=== PATIENT | female | born 1950 | race Asian ===

== ENCOUNTER 2018-06-08 10:34 | Emergency (ER) | payer MEDICARE, OTHER, SELFPAY ==
[2018-06-08] VITALS (13 sets, daily range): BP systolic 97–142; BP diastolic 52–93; PULSE 43–67; RESP 14–22; TEMP 36.4; O2SAT 93–98; BMI 32.5
--- NOTE | 2018-06-08 11:45 | DI.RAD.S_ITS ---
PROCEDURE: XR CHEST 1V INDICATIONS: chest pain TECHNIQUE: One view of the chest was acquired. COMPARISON: None. FINDINGS: Surgical changes and devices: None. Lungs and pleura: No pleural effusions or pneumothorax. Lungs are clear. Mediastinum: Mediastinal contours appear normal. Heart size is normal. Bones and chest wall: No suspicious bony lesions. Overlying soft tissues appear unremarkable. IMPRESSION: Negative chest. No acute cardiopulmonary process is evident. Dictated by: Thuan Juan M.D. on 06/08/2018 at 11:21 Approved by: Thuan Juan M.D. on 06/08/2018 at 11:37
[2018-06-08 11:57] LABS: Add Manual Diff / Slide Review NO; Basophils Percent Auto 1.2 % (0-2); Eosinophils Percent Auto 7.8 % (2-4); Hematocrit 37.9 % (36-46); Hemoglobin 12.8 g/dL (12.0-16.0); INR 0.9 (0.9-1.3); Lymphocytes Percent Auto 32.8 % (25-40); Mean Corpuscular HGB Conc 33.7 % (30-36); Mean Corpuscular Hemoglobin 31.7 PG (26-34); Mean Corpuscular Volume 94.3 fL (80-100); Monocytes Percent Auto 6.8 % (3-14); Neutrophils Absolute Auto 2800 /uL (1500-7000); Neutrophils Percent Auto 51.4 % (50-75); Platelet Count 210 X10^3/uL (150-400); Prothrombin Time 10.1 SECONDS (10.1-12.7); Red Blood Cell Count 4.02 X10^6/uL (4.0-5.2); Red Cell Distribution Width 13.1 % (11.6-14.8); White Blood Cell Count 5.4 X10^3/uL (4.5-11.0)
[2018-06-08 12:00] LABS: PTT Partial Thromboplastin Tim 23 SECONDS (26.4-36.2)
[2018-06-08 12:02] LABS: Alanine Aminotransferase 60 IU/L (9-52); Albumin 4.3 g/dL (3.5-5.0); Albumin Globulin Ratio 1.3 (1.0-2.8); Alkaline Phosphatase 75 U/L (38-126); Aspartate Aminotransferase 89 IU/L (14-36); BUN Creatinine Ratio 15.9 (6-22); Bilirubin Total 0.3 mg/dL (0.2-1.3); Blood Urea Nitrogen 27 mg/dL (7-17); Carbon Dioxide 26 mmol/L (22-32); Chloride 100 mmol/L (98-107); Creatine Kinase 71 U/L (30-135); Estimated Glomerular Filt Rate 29.7 mL/min (>60); Globulin 3.4 g/dL (1.7-4.1); Glucose 107 mg/dL (80-110); HEMOLYSIS < 15 (0-50); Lipase 210 U/L (23-300); Potassium 4.7 mmol/L (3.4-5.1); Sodium 140 mmol/L (137-145); Total Protein 7.7 g/dL (6.3-8.2)
[2018-06-08 12:03] LABS: Magnesium 2.3 mg/dL (1.6-2.3)
[2018-06-08 12:16] LABS: Troponin I < 0.012 ng/mL (0.01-0.034)
--- NOTE | 2018-06-08 12:41 | ED.DIZZY ---
HPI - Dizziness General Chief Complaint: Dizziness Stated Complaint: LOW BLOOD PRESSURE Time Seen by Provider: 06/08/18 10:36 Source: patient and family Mode of arrival: ambulatory Limitations: no limitations History of Present Illness HPI Narrative: 5-year-old female, nonsmoker with a history of kidney failure, hypertension and hyperlipidemia presents to the emergency department today with a chief complaint of a few days of feeling dizzy, weak and lightheaded with multiple episodes of near-syncope. She routinely takes her blood pressures daily and has noted that her blood pressures have been down in the 80s for a few days and her heart rate has been quite low as well. Most measurements find her in the mid to low 40s, she normally runs in the 80s or 90s. She denies any recent illness. She has had no nausea, vomiting, diarrhea or fever. She denies any new medications and takes no lenny blocking agents. She denies any history of the same and has no known cardiac disease. She was seen and evaluated by the [facility] and sent here for further evaluation. MD complaint: dizziness Onset (ago): day(s) Timing: sudden onset Description: lightheadedness History of similar episodes: No History of trauma: No Severity: moderate Exacerbating factors: nothing Related Data Home Medications Medication Instructions Recorded Confirmed Calcium/D3/Zing 1 tab PO DAILY 06/08/18 06/08/18 biotin 1 tab PO DAILY 06/08/18 06/08/18 cetirizine [Zyrtec] 10 mg PO DAILY 06/08/18 06/08/18 clonazepam 0.5 mg PO BID 06/08/18 06/08/18 fluoxetine 20 mg PO DAILY 06/08/18 06/08/18 gabapentin 300 mg PO BID 06/08/18 06/08/18 hydrochlorothiazide 12.5 mg PO DAILY 06/08/18 06/08/18 ibuprofen 200 mg PO PRN PRN 06/08/18 06/08/18 magnesium oxide 500 mg PO DAILY 06/08/18 06/08/18 ltrwfony-kcx-KB-lycopen-lutein 1 tab PO DAILY 06/08/18 06/08/18 [Centrum Silver] pantoprazole 40 mg PO DAILY 06/08/18 06/08/18 simvastatin 20 mg PO BEDTIME 06/08/18 06/08/18 tizanidine 4 mg PO BEDTIME PRN 06/08/18 06/08/18 Review of Systems Review of Systems All systems reviewed & are unremarkable except as noted in HPI and below Constitutional Denies chills, Denies fever(s), Denies lethargy and Denies weakness Eyes Denies change in vision, Denies eye discharge, Denies irritation and Denies loss of vision ENT Ears, Nose, Mouth, and Throat: Denies change in voice, Denies neck pain and Denies sore throat Cardiovascular Denies chest pain, Denies irregular heart rhythm, Reports lightheadedness, Denies palpitations, Denies dyspnea, Denies dyspnea on exertion and Denies orthopnea Respiratory Denies cough, Denies dyspnea, Denies dyspnea on exertion and Denies wheezing Gastrointestinal Gastrointestinal: Denies abdominal pain, Denies change in bowel habits, Denies diarrhea, Denies nausea and Denies vomiting Genitourinary Denies hematuria, Denies flank pain, Denies urinary incontinence and Denies urinary urgency Musculoskeletal Denies neck pain Integumentary/Breasts Denies pruritus, Denies erythema, Denies rash and Denies wounds Neurologic Denies confusion, Denies loss of vision and Denies weakness Psychiatric Denies anxiety, Denies confusion, Denies depression, Denies homicidal ideation and Denies suicidal ideation Endocrine Denies palpitations Hematologic/Lymphatic Denies easy bruising Allergic/Immunologic Denies wheezing [facility] Social History Smoking Status: Never smoker Exam Narrative Exam Narrative: GENERAL: This is a well-nourished, well-developed patient, in mild distress. HEAD: Atraumatic. Normocephalic. No temporal or scalp tenderness. EYES: Pupils equal round and reactive. Extraocular motions intact. No scleral icterus. No injection or drainage. ENT: Nose without bleeding, purulent drainage or septal hematoma. Throat without erythema, tonsillar hypertrophy or exudate. Uvula midline. Airway patent. NECK: Trachea midline. No JVD or lymphadenopathy. Supple, nontender, no meningeal signs. CARDIOVASCULAR: bradycardic rate with normal rhythm without murmurs, gallops, or rubs. RESPIRATORY: Clear to auscultation. Breath sounds equal bilaterally. No wheezes, rales, or rhonchi. GASTROINTESTINAL: Abdomen soft, non-tender, nondistended. No hepato-splenomegaly, or palpable masses. No guarding. EXTREMITIES: No clubbing, cyanosis, or edema. No joint tenderness, effusion, or edema noted. BACK: Nontender without deformity or crepitance. No flank tenderness. NEURO: AOx3. SKIN: No rash or erythema. Initial Vital Signs Initial Vital Signs: Vital Signs Temperature 97.5 F L 06/08/18 10:49 Pulse Rate 50 L 06/08/18 10:49 Respiratory Rate 20 06/08/18 10:49 Blood Pressure 97/54 L 06/08/18 10:49 Pulse Oximetry 96 06/08/18 10:49 Course Orders Ordered: ED Orders 06/08/18 10:25 Complete Blood Count AUTO DIFF Stat Comprehensive Metabolic Panel Stat Lipase Stat Magnesium Stat Partial Thromboplastin Time Stat Prothrombin Time INR Stat Troponin & CK Cardiac Panel Stat 06/08/18 11:45 XR chest 1V Stat EKG-12 Lead Stat 06/08/18 13:15 CT head/brain wo con Stat Consultations Consultation #1: call to cardiology at [facility] whom share the opinion that unprovoked bradycardia is worthy of admission and evaluation and that [facility] is the appropriate facility Consultation #2: Dr. Zepeda (hospitalist) is happy to accept patient Vital Signs - 8 hr 06/08/18 10:49 06/08/18 11:00 06/08/18 11:30 Temperature 97.5 F L Pulse Rate 50 L 43 L 43 L Pulse Rate [Orthostatic Lying] Pulse Rate [Orthostatic Sitting] Pulse Rate [Orthostatic Standing] Respiratory Rate 20 14 18 Blood Pressure 97/54 L Blood Pressure [Orthostatic Lying] Blood Pressure [Orthostatic Sitting] Blood Pressure [Orthostatic Standing] Blood Pressure [Right Arm] 115/52 L 106/55 L Pulse Oximetry 96 94 93 06/08/18 12:00 06/08/18 12:30 06/08/18 13:00 Temperature Pulse Rate 44 L 43 L 47 L Pulse Rate [Orthostatic Lying] Pulse Rate [Orthostatic Sitting] Pulse Rate [Orthostatic Standing] Respiratory Rate 17 16 16 Blood Pressure Blood Pressure [Orthostatic Lying] Blood Pressure [Orthostatic Sitting] Blood Pressure [Orthostatic Standing] Blood Pressure [Right Arm] 110/61 109/53 L 122/61 Pulse Oximetry 93 94 94 06/08/18 13:15 06/08/18 13:17 06/08/18 13:30 Temperature Pulse Rate 65 61 Pulse Rate [Orthostatic Lying] 44 L Pulse Rate [Orthostatic Sitting] 49 L Pulse Rate [Orthostatic Standing] 55 L Respiratory Rate 15 15 Blood Pressure Blood Pressure [Orthostatic Lying] 115/61 Blood Pressure [Orthostatic Sitting] 109/61 Blood Pressure [Orthostatic Standing] 111/58 L Blood Pressure [Right Arm] 109/93 H Pulse Oximetry 95 98 06/08/18 14:00 06/08/18 14:30 06/08/18 15:00 Temperature Pulse Rate 49 L 47 L 67 Pulse Rate [Orthostatic Lying] Pulse Rate [Orthostatic Sitting] Pulse Rate [Orthostatic Standing] Respiratory Rate 17 17 22 Blood Pressure Blood Pressure [Orthostatic Lying] Blood Pressure [Orthostatic Sitting] Blood Pressure [Orthostatic Standing] Blood Pressure [Right Arm] 132/63 128/56 L 142/54 H Pulse Oximetry 95 94 97 MDM - Dizziness Medical Records Attestation: I reviewed the patient's medical records. Lab Data Attestation: I reviewed the patient's lab results. Result diagrams: 06/08/18 10:25 06/08/18 10:25 Lab Results 06/08/18 06/08/18 06/08/18 Range/Units 10:25 10:25 10:25 WBC 5.4 (4.5-11.0) X10^3/uL RBC 4.02 (4.0-5.2) X10^6/uL Hgb 12.8 (12.0-16.0) g/dL Hct 37.9 (36-46) % MCV 94.3 (80-100) fL MCH 31.7 (26-34) PG MCHC 33.7 (30-36) % RDW 13.1 (11.6-14.8) % Plt Count 210 (150-400) X10^3/uL Neut % (Auto) 51.4 (50-75) % Lymph % (Auto) 32.8 (25-40) % Trinity % (Auto) 6.8 (3-14) % Eos % (Auto) 7.8 H (2-4) % Baso % (Auto) 1.2 (0-2) % Neut # (Auto) 2800 (3981-9112) /uL PT 10.1 (10.1-12.7) SECONDS INR 0.9 (0.9-1.3) APTT 23 L (26.4-36.2) SECONDS Sodium 140 (137-145) mmol/L Potassium 4.7 (3.4-5.1) mmol/L Chloride 100 (98-107) mmol/L Carbon Dioxide 26 (22-32) mmol/L BUN 27 H (7-17) mg/dL Creatinine 1.70 H (0.52-1.04) mg/dL Estimated GFR 29.7 L (>60) mL/min BUN/Creatinine Ratio 15.9 (6-22) Glucose 107 (80-110) mg/dL Calcium 10.0 (8.4-10.2) mg/dL Magnesium (1.6-2.3) mg/dL Total Bilirubin 0.3 (0.2-1.3) mg/dL AST 89 H (14-36) IU/L ALT 60 H (9-52) IU/L Alkaline Phosphatase 75 (38-126) U/L Total Creatine Kinase 71 (30-135) U/L CK-MB (CK-2) TNP CK-MB (CK-2) Rel Index TNP Troponin I < 0.012 (0.01-0.034) ng/mL Total Protein 7.7 (6.3-8.2) g/dL Albumin 4.3 (3.5-5.0) g/dL Globulin 3.4 (1.7-4.1) g/dL Albumin/Globulin Ratio 1.3 (1.0-2.8) Lipase 210 (23-300) U/L /14/18 Range/Units 10:25 WBC (4.5-11.0) X10^3/uL RBC (4.0-5.2) X10^6/uL Hgb (12.0-16.0) g/dL Hct (36-46) % MCV (80-100) fL MCH (26-34) PG MCHC (30-36) % RDW (11.6-14.8) % Plt Count (150-400) X10^3/uL Neut % (Auto) (50-75) % Lymph % (Auto) (25-40) % Trinity % (Auto) (3-14) % Eos % (Auto) (2-4) % Baso % (Auto) (0-2) % Neut # (Auto) (4308-5357) /uL PT (10.1-12.7) SECONDS INR (0.9-1.3) APTT (26.4-36.2) SECONDS Sodium (137-145) mmol/L Potassium (3.4-5.1) mmol/L Chloride (98-107) mmol/L Carbon Dioxide (22-32) mmol/L BUN (7-17) mg/dL Creatinine (0.52-1.04) mg/dL Estimated GFR (>60) mL/min BUN/Creatinine Ratio (6-22) Glucose (80-110) mg/dL Calcium (8.4-10.2) mg/dL Magnesium 2.3 (1.6-2.3) mg/dL Total Bilirubin (0.2-1.3) mg/dL AST (14-36) IU/L ALT (9-52) IU/L Alkaline Phosphatase (38-126) U/L Total Creatine Kinase (30-135) U/L CK-MB (CK-2) CK-MB (CK-2) Rel Index Troponin I (0.01-0.034) ng/mL Total Protein (6.3-8.2) g/dL Albumin (3.5-5.0) g/dL Globulin (1.7-4.1) g/dL Albumin/Globulin Ratio (1.0-2.8) Lipase (23-300) U/L ECG Data Attestation: I personally reviewed and interpreted this ECG as follows: Prior ECG tracings: not available for review Interpretation: sinus bradycardia. no block Discharge Plan Departure Patient Disposition: [facility] Clinical Impression: Symptomatic bradycardia Prescriptions: No Action cetirizine [Zyrtec] 10 mg Tablet 10 mg PO DAILY RF: 0 tizanidine 4 mg tablet 4 mg PO BEDTIME PRN (Reason: Spasms) RF: 0 clonazepam 0.5 mg tablet 0.5 mg PO BID RF: 0 pantoprazole 40 mg tablet,delayed release (DR/EC) 40 mg PO DAILY RF: 0 simvastatin 20 mg tablet 20 mg PO BEDTIME RF: 0 ibuprofen 200 mg Tablet 200 mg PO PRN PRN (Reason: pain) RF: 0 magnesium oxide 500 mg Tablet 500 mg PO DAILY RF: 0 gabapentin 300 mg capsule 300 mg PO BID RF: 0 fluoxetine 20 mg capsule 20 mg PO DAILY RF: 0 xbqucgwn-ycm-GS-lycopen-lutein [Centrum Silver] 0.4-300-250 mg-mcg-mcg Tablet 1 tab PO DAILY RF: 0 hydrochlorothiazide 12.5 mg tablet 12.5 mg PO DAILY RF: 0 Calcium/D3/Zing 1 tab PO DAILY RF: 0 biotin 1 tab PO DAILY RF: 0
--- NOTE | 2018-06-08 13:15 | DI.CT.S_ITS ---
PROCEDURE: CT HEAD/BRAIN WO CON INDICATIONS: dizzy, ataxia TECHNIQUE: Noncontrast 4.5 mm thick angled axial sections acquired from the foramen magnum to the vertex, with coronal and sagittal reformats. For radiation dose reduction, the following was used: automated exposure control, adjustment of mA and/or kV according to patient size. COMPARISON: None. FINDINGS: Image quality: Excellent. CSF spaces: Basal cisterns are patent. No extra-axial fluid collections. The ventricles are symmetric in size and shape. Brain: No intracranial bleeds or masses. There is mild cerebral volume loss for age, with resultant ventricular and sulcal prominence. There are mild periventricular and deep white matter chronic small vessel ischemic changes. There is intracranial internal carotid artery atherosclerosis. Skull and face: Calvarium and visualized facial bones appear intact, without suspicious lesions. Sinuses: Mastoids are clear. There is mucous retention cyst in the left ethmoid sinus and IMPRESSION: 1. No acute intracranial abnormalities. 2. Cerebral volume loss and chronic microvascular ischemic changes. 3. Mild left ethmoid sinus disease. Dictated by: Noni Correa M.D. on 06/08/2018 at 13:58 Approved by: Noni Correa M.D. on 06/08/2018 at 14:01
--- NOTE | 2018-06-08 13:17 | PC.NURSE ---
While ambulating pt reported feeling dizzy. Checked BP at this time and bP while standing increased to 134/73. While standing to get blood pressure, pt reports dizziness decreased. Was unsteady while standing. When got back to bed and sat on bed pt was 117/65. Denied any dizziness the rest of the walk. Walked around nurses station.
--- NOTE | 2018-06-08 15:33 | ED_ITS ---
HPI - Dizziness General Chief Complaint: Dizziness Stated Complaint: LOW BLOOD PRESSURE Time Seen by Provider: 06/08/18 10:36 Source: patient and family Mode of arrival: ambulatory Limitations: no limitations History of Present Illness HPI Narrative: 5-year-old female, nonsmoker with a history of kidney failure, hypertension and hyperlipidemia presents to the emergency department today with a chief complaint of a few days of feeling dizzy, weak and lightheaded with multiple episodes of near-syncope. She routinely takes her blood pressures daily and has noted that her blood pressures have been down in the 80s for a few days and her heart rate has been quite low as well. Most measurements find her in the mid to low 40s, she normally runs in the 80s or 90s. She denies any recent illness. She has had no nausea, vomiting, diarrhea or fever. She denies any new medications and takes no lenny blocking agents. She denies any history of the same and has no known cardiac disease. She was seen and evaluated by the [facility] and sent here for further evaluation. MD complaint: dizziness Onset (ago): day(s) Timing: sudden onset Description: lightheadedness History of similar episodes: No History of trauma: No Severity: moderate Exacerbating factors: nothing Related Data Home Medications Medication Instructions Recorded Confirmed Calcium/D3/Zing 1 tab PO DAILY 06/08/18 06/08/18 biotin 1 tab PO DAILY 06/08/18 06/08/18 cetirizine [Zyrtec] 10 mg PO DAILY 06/08/18 06/08/18 clonazepam 0.5 mg PO BID 06/08/18 06/08/18 fluoxetine 20 mg PO DAILY 06/08/18 06/08/18 gabapentin 300 mg PO BID 06/08/18 06/08/18 hydrochlorothiazide 12.5 mg PO DAILY 06/08/18 06/08/18 ibuprofen 200 mg PO PRN PRN 06/08/18 06/08/18 magnesium oxide 500 mg PO DAILY 06/08/18 06/08/18 zwfubkok-qyq-DN-lycopen-lutein 1 tab PO DAILY 06/08/18 06/08/18 [Centrum Silver] pantoprazole 40 mg PO DAILY 06/08/18 06/08/18 simvastatin 20 mg PO BEDTIME 06/08/18 06/08/18 tizanidine 4 mg PO BEDTIME PRN 06/08/18 06/08/18 Review of Systems Review of Systems All systems reviewed & are unremarkable except as noted in HPI and below Constitutional Denies chills, Denies fever(s), Denies lethargy and Denies weakness Eyes Denies change in vision, Denies eye discharge, Denies irritation and Denies loss of vision ENT Ears, Nose, Mouth, and Throat: Denies change in voice, Denies neck pain and Denies sore throat Cardiovascular Denies chest pain, Denies irregular heart rhythm, Reports lightheadedness, Denies palpitations, Denies dyspnea, Denies dyspnea on exertion and Denies orthopnea Respiratory Denies cough, Denies dyspnea, Denies dyspnea on exertion and Denies wheezing Gastrointestinal Gastrointestinal: Denies abdominal pain, Denies change in bowel habits, Denies diarrhea, Denies nausea and Denies vomiting Genitourinary Denies hematuria, Denies flank pain, Denies urinary incontinence and Denies urinary urgency Musculoskeletal Denies neck pain Integumentary/Breasts Denies pruritus, Denies erythema, Denies rash and Denies wounds Neurologic Denies confusion, Denies loss of vision and Denies weakness Psychiatric Denies anxiety, Denies confusion, Denies depression, Denies homicidal ideation and Denies suicidal ideation Endocrine Denies palpitations Hematologic/Lymphatic Denies easy bruising Allergic/Immunologic Denies wheezing [facility] Social History Smoking Status: Never smoker Exam Narrative Exam Narrative: GENERAL: This is a well-nourished, well-developed patient, in mild distress. HEAD: Atraumatic. Normocephalic. No temporal or scalp tenderness. EYES: Pupils equal round and reactive. Extraocular motions intact. No scleral icterus. No injection or drainage. ENT: Nose without bleeding, purulent drainage or septal hematoma. Throat without erythema, tonsillar hypertrophy or exudate. Uvula midline. Airway patent. NECK: Trachea midline. No JVD or lymphadenopathy. Supple, nontender, no meningeal signs. CARDIOVASCULAR: bradycardic rate with normal rhythm without murmurs, gallops, or rubs. RESPIRATORY: Clear to auscultation. Breath sounds equal bilaterally. No wheezes , rales, or rhonchi. GASTROINTESTINAL: Abdomen soft, non-tender, nondistended. No hepato-splenomegaly , or palpable masses. No guarding. EXTREMITIES: No clubbing, cyanosis, or edema. No joint tenderness, effusion, or edema noted. BACK: Nontender without deformity or crepitance. No flank tenderness. NEURO: AOx3. SKIN: No rash or erythema. Initial Vital Signs Initial Vital Signs: Vital Signs Temperature 97.5 F L 06/08/18 10:49 Pulse Rate 50 L 06/08/18 10:49 Respiratory Rate 20 06/08/18 10:49 Blood Pressure 97/54 L 06/08/18 10:49 Pulse Oximetry 96 06/08/18 10:49 Course Orders Ordered: ED Orders 06/08/18 10:25 Complete Blood Count AUTO DIFF Stat Comprehensive Metabolic Panel Stat Lipase Stat Magnesium Stat Partial Thromboplastin Time Stat Prothrombin Time INR Stat Troponin & CK Cardiac Panel Stat 06/08/18 11:45 XR chest 1V Stat EKG-12 Lead Stat 06/08/18 13:15 CT head/brain wo con Stat Consultations Consultation #1: call to cardiology at [facility] whom share the opinion that unprovoked bradycardia is worthy of admission and evaluation and that [facility] is the appropriate facility Consultation #2: Dr. Zepeda (hospitalist) is happy to accept patient Vital Signs - 8 hr 06/08/18 10:49 06/08/18 11:00 06/08/18 11:30 Temperature 97.5 F L Pulse Rate 50 L 43 L 43 L Pulse Rate [Orthostatic Lying] Pulse Rate [Orthostatic Sitting] Pulse Rate [Orthostatic Standing] Respiratory Rate 20 14 18 Blood Pressure 97/54 L Blood Pressure [Orthostatic Lying] Blood Pressure [Orthostatic Sitting] Blood Pressure [Orthostatic Standing] Blood Pressure [Right Arm] 115/52 L 106/55 L Pulse Oximetry 96 94 93 06/08/18 12:00 06/08/18 12:30 06/08/18 13:00 Temperature Pulse Rate 44 L 43 L 47 L Pulse Rate [Orthostatic Lying] Pulse Rate [Orthostatic Sitting] Pulse Rate [Orthostatic Standing] Respiratory Rate 17 16 16 Blood Pressure Blood Pressure [Orthostatic Lying] Blood Pressure [Orthostatic Sitting] Blood Pressure [Orthostatic Standing] Blood Pressure [Right Arm] 110/61 109/53 L 122/61 Pulse Oximetry 93 94 94 06/08/18 13:15 06/08/18 13:17 06/08/18 13:30 Temperature Pulse Rate 65 61 Pulse Rate [Orthostatic Lying] 44 L Pulse Rate [Orthostatic Sitting] 49 L Pulse Rate [Orthostatic Standing] 55 L Respiratory Rate 15 15 Blood Pressure Blood Pressure [Orthostatic Lying] 115/61 Blood Pressure [Orthostatic Sitting] 109/61 Blood Pressure [Orthostatic Standing] 111/58 L Blood Pressure [Right Arm] 109/93 H Pulse Oximetry 95 98 06/08/18 14:00 06/08/18 14:30 06/08/18 15:00 Temperature Pulse Rate 49 L 47 L 67 Pulse Rate [Orthostatic Lying] Pulse Rate [Orthostatic Sitting] Pulse Rate [Orthostatic Standing] Respiratory Rate 17 17 22 Blood Pressure Blood Pressure [Orthostatic Lying] Blood Pressure [Orthostatic Sitting] Blood Pressure [Orthostatic Standing] Blood Pressure [Right Arm] 132/63 128/56 L 142/54 H Pulse Oximetry 95 94 97 MDM - Dizziness Medical Records Attestation: I reviewed the patient's medical records. Lab Data Attestation: I reviewed the patient's lab results. Result diagrams: 06/08/18 10:25 06/08/18 10:25 Lab Results 06/08/18 06/08/18 06/08/18 Range/Units 10:25 10:25 10:25 WBC 5.4 (4.5-11.0) X10^3/uL RBC 4.02 (4.0-5.2) X10^6/uL Hgb 12.8 (12.0-16.0) g/dL Hct 37.9 (36-46) % MCV 94.3 (80-100) fL MCH 31.7 (26-34) PG MCHC 33.7 (30-36) % RDW 13.1 (11.6-14.8) % Plt Count 210 (150-400) X10^3/uL Neut % (Auto) 51.4 (50-75) % Lymph % (Auto) 32.8 (25-40) % Pine % (Auto) 6.8 (3-14) % Eos % (Auto) 7.8 H (2-4) % Baso % (Auto) 1.2 (0-2) % Neut # (Auto) 2800 (9150-9889) /uL PT 10.1 (10.1-12.7) SECONDS INR 0.9 (0.9-1.3) APTT 23 L (26.4-36.2) SECONDS Sodium 140 (137-145) mmol/L Potassium 4.7 (3.4-5.1) mmol/L Chloride 100 (98-107) mmol/L Carbon Dioxide 26 (22-32) mmol/L BUN 27 H (7-17) mg/dL Creatinine 1.70 H (0.52-1.04) mg/dL Estimated GFR 29.7 L (>60) mL/min BUN/Creatinine Ratio 15.9 (6-22) Glucose 107 (80-110) mg/dL Calcium 10.0 (8.4-10.2) mg/dL Magnesium (1.6-2.3) mg/dL Total Bilirubin 0.3 (0.2-1.3) mg/dL AST 89 H (14-36) IU/L ALT 60 H (9-52) IU/L Alkaline Phosphatase 75 (38-126) U/L Total Creatine Kinase 71 (30-135) U/L CK-MB (CK-2) TNP CK-MB (CK-2) Rel Index TNP Troponin I < 0.012 (0.01-0.034) ng/mL Total Protein 7.7 (6.3-8.2) g/dL Albumin 4.3 (3.5-5.0) g/dL Globulin 3.4 (1.7-4.1) g/dL Albumin/Globulin Ratio 1.3 (1.0-2.8) Lipase 210 (23-300) U/L /14/18 Range/Units 10:25 WBC (4.5-11.0) X10^3/uL RBC (4.0-5.2) X10^6/uL Hgb (12.0-16.0) g/dL Hct (36-46) % MCV (80-100) fL MCH (26-34) PG MCHC (30-36) % RDW (11.6-14.8) % Plt Count (150-400) X10^3/uL Neut % (Auto) (50-75) % Lymph % (Auto) (25-40) % Pine % (Auto) (3-14) % Eos % (Auto) (2-4) % Baso % (Auto) (0-2) % Neut # (Auto) (9189-2255) /uL PT (10.1-12.7) SECONDS INR (0.9-1.3) APTT (26.4-36.2) SECONDS Sodium (137-145) mmol/L Potassium (3.4-5.1) mmol/L Chloride (98-107) mmol/L Carbon Dioxide (22-32) mmol/L BUN (7-17) mg/dL Creatinine (0.52-1.04) mg/dL Estimated GFR (>60) mL/min BUN/Creatinine Ratio (6-22) Glucose (80-110) mg/dL Calcium (8.4-10.2) mg/dL Magnesium 2.3 (1.6-2.3) mg/dL Total Bilirubin (0.2-1.3) mg/dL AST (14-36) IU/L ALT (9-52) IU/L Alkaline Phosphatase (38-126) U/L Total Creatine Kinase (30-135) U/L CK-MB (CK-2) CK-MB (CK-2) Rel Index Troponin I (0.01-0.034) ng/mL Total Protein (6.3-8.2) g/dL Albumin (3.5-5.0) g/dL Globulin (1.7-4.1) g/dL Albumin/Globulin Ratio (1.0-2.8) Lipase (23-300) U/L ECG Data Attestation: I personally reviewed and interpreted this ECG as follows: Prior ECG tracings: not available for review Interpretation: sinus bradycardia. no block Discharge Plan Departure Patient Disposition: [facility] Clinical Impression: Symptomatic bradycardia Prescriptions: No Action cetirizine [Zyrtec] 10 mg Tablet 10 mg PO DAILY RF: 0 tizanidine 4 mg tablet 4 mg PO BEDTIME PRN (Reason: Spasms) RF: 0 clonazepam 0.5 mg tablet 0.5 mg PO BID RF: 0 pantoprazole 40 mg tablet,delayed release (DR/EC) 40 mg PO DAILY RF: 0 simvastatin 20 mg tablet 20 mg PO BEDTIME RF: 0 ibuprofen 200 mg Tablet 200 mg PO PRN PRN (Reason: pain) RF: 0 magnesium oxide 500 mg Tablet 500 mg PO DAILY RF: 0 gabapentin 300 mg capsule 300 mg PO BID RF: 0 fluoxetine 20 mg capsule 20 mg PO DAILY RF: 0 zkjhkewu-mvm-HP-lycopen-lutein [Centrum Silver] 0.4-300-250 mg-mcg-mcg Tablet 1 tab PO DAILY RF: 0 hydrochlorothiazide 12.5 mg tablet 12.5 mg PO DAILY RF: 0 Calcium/D3/Zing 1 tab PO DAILY RF: 0 biotin 1 tab PO DAILY RF: 0
== END 2018-06-08 15:39 | disposition short-term general hospital (02) ==
PROVIDERS: Emergency Provider Emergency Medicine
DX: R00.1 Bradycardia, unspecified (principal)
CPT/HCPCS: 36415; 36591; 70450; 71045; 80053; 82550; 83690; 83735; 84484; 85025; 85610; 85730; 93005; 93010; 93041; 99285

== ENCOUNTER 2019-02-05 12:52 | Emergency (ER) | payer MEDICARE, OTHER, SELFPAY ==
[2019-02-05 12:58] VITALS: BP 106/70; PULSE 76; RESP 20; TEMP 36.5; O2SAT 94
[2019-02-05 15:08] LABS: RBC Urine 1-5/HPF (0-5/HPF); Squamous Epithelial Cell Urine 1-5 /HPF (0-5/HPF); WBC Urine 30-100/HPF (0-5/HPF)
[2019-02-05 15:09] LABS: Amorphous Sediment Urine 1+; Bacteria Urine Many (>30); Culture Indicated Urine Specimen Cultured; Mucus Urine 1+ (Negative)
[2019-02-05 15:18] VITALS: BP 120/62; PULSE 70; RESP 15; TEMP 37; O2SAT 99
[2019-02-05 16:47] VITALS: BP 122/57; PULSE 73; RESP 15; O2SAT 100
--- NOTE | 2019-02-05 17:22 | ED_ITS ---
HPI - Back Pain/Injury General Chief Complaint: Back Pain/Injury Stated Complaint: BACK PAIN SOB LOW BLOOD PRESSURE Time Seen by Provider: 02/05/19 14:40 Source: patient and family Mode of arrival: ambulatory Limitations: no limitations History of Present Illness HPI Narrative: Patient complains of right flank pain and low back pain that started about 2 days ago. Patient denies any fevers or chills. She denies any injury. She has had mild dysuria. No nausea or vomiting. She states that sometimes when she takes a deep breath, it causes the pain to be a little worse, but she denies any actual shortness of breath. No dizziness or lightheadedness. No cough. No abdominal pain. No other complaints at this time. Patient does not have any chronic back problems that she knows of. Related Data Home Medications Medication Instructions Recorded Confirmed Calcium/D3/Zing 1 tab PO DAILY 06/08/18 06/08/18 biotin 1 tab PO DAILY 06/08/18 06/08/18 cetirizine [Zyrtec] 10 mg PO DAILY 06/08/18 06/08/18 fluoxetine 20 mg PO DAILY 06/08/18 02/05/19 gabapentin 300 mg PO BID 06/08/18 06/08/18 hydrochlorothiazide 12.5 mg PO DAILY 06/08/18 06/08/18 ibuprofen 200 mg PO PRN PRN 06/08/18 06/08/18 magnesium oxide 500 mg PO DAILY 06/08/18 06/08/18 gfonwflu-xlc-YL-lycopen-lutein 1 tab PO DAILY 06/08/18 06/08/18 [Centrum Silver] pantoprazole 40 mg PO DAILY 06/08/18 06/08/18 simvastatin 20 mg PO BEDTIME 06/08/18 02/05/19 tizanidine 4 mg PO BEDTIME PRN 06/08/18 06/08/18 amlodipine 2.5 mg PO DAILY 02/05/19 02/05/19 Previous Rx's Medication Instructions Recorded sulfamethoxazole-trimethoprim 1 tab PO BID #14 tab 02/05/19 [Bactrim DS] Allergies Allergy/AdvReac Type Severity Reaction Status Date / Time Penicillins Allergy Hives Verified 02/10/19 12:27 Review of Systems Constitutional Denies chills, Denies fever(s), Denies lethargy and Denies weakness Eyes Denies change in vision, Denies eye discharge, Denies irritation and Denies loss of vision ENT Ears, Nose, Mouth, and Throat: Denies change in voice, Denies neck pain and Denies sore throat Cardiovascular Denies chest pain, Denies irregular heart rhythm, Denies lightheadedness, Denies palpitations, Denies dyspnea, Denies dyspnea on exertion and Denies orthopnea Respiratory Denies cough, Denies dyspnea, Denies dyspnea on exertion and Denies wheezing Gastrointestinal Gastrointestinal: Denies abdominal pain, Denies change in bowel habits, Denies diarrhea, Denies nausea and Denies vomiting Genitourinary Denies hematuria, Denies flank pain, Denies urinary incontinence and Denies urinary urgency Musculoskeletal Denies neck pain Comments: Back pain Integumentary/Breasts Denies pruritus, Denies erythema, Denies rash and Denies wounds Neurologic Denies confusion, Denies loss of vision and Denies weakness Psychiatric Denies anxiety, Denies confusion, Denies depression, Denies homicidal ideation and Denies suicidal ideation Endocrine Denies palpitations Hematologic/Lymphatic Denies easy bruising Allergic/Immunologic Denies wheezing PFSH Medical History HTN (hypertension) (Acute) Surgical History No pertinent past surgical history (Acute) Social History Smoking Status: Former smoker Social History Smoking Status: Former smoker Exam Initial Vital Signs Initial Vital Signs: Vital Signs Temperature 97.7 F 02/05/19 12:58 Pulse Rate 76 02/05/19 12:58 Respiratory Rate 20 02/05/19 12:58 Blood Pressure 106/70 02/05/19 12:58 Pulse Oximetry 94 02/05/19 12:58 Const General: cooperative and well developed Nutritional Appearance: well nourished Orientation: alert, awake, oriented x3 and not confused HENLA Head: normocephalic and atraumatic Ears: external ears normal Nose: external nose normal and No nasal discharge Face and sinus: face symmetric and No dry mucous membranes Mouth: oral mucosae normal and moist mucous membranes Teeth and gingiva: dentition normal Eyes General: appearance normal, both eyes and all related structures Eyelids: eyelids normal Conjunctivae: conjunctivae normal Sclera: sclerae normal Pupils: PERRL EOM: EOM intact bilaterally Neck Neck: normal visual inspection, trachea midline, No lymphadenopathy, No midline deformity and No JVD Lymphatic: No lymphedema Chest Chest: normal inspection of the chest Resp Effort & Inspection: normal respiratory effort, able to speak in complete sentences, no respiratory distress and no use of accessory muscles Auscultation: clear to auscultation bilaterally, no rales, no rhonchi and no wheezes Cardio Rate: regular rate Rhythm: regular rhythm Heart Sounds: no click, no gallops, no murmurs and no rubs Pulses: normal peripheral pulses GI Inspection: non-distended Palpation: soft, no hepatosplenomegaly, No guarding, No pulsatile mass and No tender Back/Spine/Pelvis Back: CVA tenderness (Mild right) Cervical Spine: cervical ROM normal and No pain with cervical ROM Thoracic/Lumbar Spine: thoracic and lumbar spine normal to inspection (No tender ness or step-off.) Other: Patient has lumbar paraspinal muscular tenderness on the right. She also has pain in the same area with range of motion. Skin General: no rashes or lesions noted, No jaundice and No petechiae Neuro General: alert, oriented x3, gait normal and no focal motor deficits Speech: speech normal Extrem General: full ROM, no clubbing, cyanosis or edema, no pedal edema and no calf tenderness Psych Appearance: well kempt Mental Status: mental status grossly normal Attitude: cooperative Thought Content: normal and suicidality Judgment: judgment good Course Course Narrative: Up with labs and urinalysis. Labs were unremarkable, with a normal white blood cell count. Urinalysis was positive for infection. Patient was started on Bactrim for this. We have discussed home management of the symptoms, as well as the usual indications for return. Orders Ordered: Discontinued Medications Acetaminophen (Tylenol) 650 mg PO NOW ONE Stop: 02/05/19 17:18 Last Admin: 02/05/19 18:02 Dose: 650 mg Ketorolac Tromethamine (Toradol) 60 mg IM NOW ONE Stop: 02/05/19 17:18 Last Admin: 02/05/19 18:01 Dose: 60 mg Trimethoprim/Sulfamethoxazole (Bactrim Ds) 1 tab PO NOW ONE Stop: 02/05/19 17:15 Last Admin: 02/05/19 18:02 Dose: 1 tab Vital Signs - 8 hr 02/05/19 12:58 02/05/19 15:18 02/05/19 16:47 Temperature 97.7 F 98.6 F Pulse Rate 76 70 73 Respiratory Rate 20 15 15 Blood Pressure 106/70 Blood Pressure [Right Arm] 120/62 122/57 L Pulse Oximetry 94 99 100 MDM - Back Pain/Injury Medical Records Attestation: I reviewed the patient's medical records. Lab Data Attestation: I reviewed the patient's lab results. Lab Results 02/05/19 Range/Units 14:30 Urine RBC 1-5/hpf (0-5/HPF) Urine WBC 30-100/hpf H (0-5/HPF) Ur Squamous Epith Cells 1-5 /hpf (0-5/HPF) Amorphous Sediment 1+ Urine Bacteria Many (>30) H (None) Urine Mucus 1+ H (Negative) Ur Culture Indicated? Specimen cultured Urine Dip Bedside Urine Glucose Negative Bedside Urine Bilirubin + 1 Bedside Urine Ketone +/- 5 Urine Specific [place] 1.015 Bedside Urine Occult Blood +++ Bedside Urine pH 6.0 Bedside Urine Protein + 30 Bedside Urine Urobilinogen +/- 1mg Bedside Urine Nitrite + Positive Bedside Urine Leukocytes +++ 500 Esterase Discharge Plan Departure Patient Disposition: Home Clinical Impression: Urinary tract infection Qualifiers: Urinary tract infection type: acute cystitis Hematuria presence: with hematuria Qualified Code(s): N30.01 - Acute cystitis with hematuria Discharge Date/Time: 02/05/19 18:22 Interventions: ED Discharge Assessment Last Done: 02/05/19 18:21 Instructions: DI for Low Back Pain, DI for Urinary Tract Infection (UTI) Activity Restrictions/Additional Instructions: Your urine is strongly positive for infection. You have been started on antibiotics for this in the emergency department. Please continue the antibiotics at home, until the course is finished. Drink plenty of fluids, and take Tylenol and ibuprofen, as needed for discomfort. Your prescription has been electronically transmitted to [facility] in [place]. Prescriptions: New sulfamethoxazole-trimethoprim [Bactrim DS] 800-160 mg tablet 1 tab PO BID Qty: 14 RF: 0 No Action amlodipine 2.5 mg tablet 2.5 mg PO DAILY RF: 0 cetirizine [Zyrtec] 10 mg Tablet 10 mg PO DAILY RF: 0 tizanidine 4 mg tablet 4 mg PO BEDTIME PRN (Reason: Spasms) RF: 0 pantoprazole 40 mg tablet,delayed release (DR/EC) 40 mg PO DAILY RF: 0 simvastatin 20 mg tablet 20 mg PO BEDTIME RF: 0 ibuprofen 200 mg Tablet 200 mg PO PRN PRN (Reason: pain) RF: 0 magnesium oxide 500 mg Tablet 500 mg PO DAILY RF: 0 gabapentin 300 mg capsule 300 mg PO BID RF: 0 fluoxetine 20 mg capsule 20 mg PO DAILY RF: 0 axyckipf-ofu-FA-lycopen-lutein [Centrum Silver] 0.4-300-250 mg-mcg-mcg Tablet 1 tab PO DAILY RF: 0 hydrochlorothiazide 12.5 mg tablet 12.5 mg PO DAILY RF: 0 Calcium/D3/Zing 1 tab PO DAILY RF: 0 biotin 1 tab PO DAILY RF: 0
[2019-02-05] MEDS: KETOROLAC 60 MG/2 ML VIAL IM (18:01)
[2019-02-05] MEDS: ACETAMINOPHEN 325 MG TABLET 650 MG PO (18:02)
[2019-02-05] MEDS: TRIMETH/SULFA 160/800 (DS) TABLET 1 TAB PO (18:02)
== END 2019-02-05 18:22 | disposition home or self-care (01) ==
PROVIDERS: Emergency Provider Emergency Medicine
DX: N30.01 Acute cystitis with hematuria (principal)
CPT/HCPCS: 81003; 81015; 87077; 87086; 87186; 96372; 99282; 99283; J1885

== ENCOUNTER 2019-02-10 12:09 | Emergency (ER) | payer MEDICARE, OTHER, SELFPAY ==
[2019-02-10 12:21] VITALS: BP 134/67; PULSE 80; RESP 16; TEMP 36.4; O2SAT 96; BMI 29.2
[2019-02-10 12:35] LABS: Appearance Urine UA CLEAR; Bilirubin Urine UA NEGATIVE (NEGATIVE); Color Urine UA YELLOW; Glucose Urine UA NEGATIVE (Negative); Ketones Urine UA NEGATIVE (NEGATIVE); Leukocyte Esterase Urine UA NEGATIVE (NEGATIVE); Nitrite Urine UA NEGATIVE (Negative); Occult Blood Urine UA 1+ (Negative); Protein Urine UA NEGATIVE (Negative); Specific Gravity Urine UA 1.015 (1.000-1.035); Urobilinogen Urine UA 0.2 E.U./dL (0.2)
[2019-02-10 12:47] LABS: Amorphous Sediment Urine 1+; Bacteria Urine Occasional (0-1); Culture Indicated Urine Cult Not Indicated; Hyaline Casts Urine 1-5/LPF; Mucus Urine 1+ (Negative); RBC Urine 1-5/HPF (0-5/HPF); Squamous Epithelial Cell Urine 5-10 /HPF (0-5/HPF); WBC Urine 0-1/HPF (0-5/HPF)
[2019-02-10 13:29] LABS: Add Manual Diff / Slide Review NO; Basophils Absolute Auto 100 /uL (0-100); Basophils Percent Auto 2.6 % (0-2); Eosinophils Absolute Auto 200 /uL (0-450); Eosinophils Percent Auto 4.2 % (2-4); Hematocrit 35.4 % (36-46); Lymphocytes Absolute Auto 800 /uL (1100-4500); Lymphocytes Percent Auto 15.5 % (25-40); Mean Corpuscular HGB Conc 33.9 % (30-36); Mean Corpuscular Hemoglobin 31.7 PG (26-34); Mean Corpuscular Volume 93.6 fL (80-100); Monocytes Absolute Auto 300 /uL (0-900); Monocytes Percent Auto 6.9 % (3-14); Neutrophils Absolute Auto 3400 /uL (1500-7000); Neutrophils Percent Auto 70.8 % (50-75); Platelet Count 204 X10^3/uL (150-400); Red Blood Cell Count 3.78 X10^6/uL (4.0-5.2); Red Cell Distribution Width 12.5 % (11.6-14.8); White Blood Cell Count 4.8 X10^3/uL (4.5-11.0)
[2019-02-10 13:40] LABS: Alanine Aminotransferase 26 IU/L (9-52); Albumin 3.8 g/dL (3.5-5.0); Albumin Globulin Ratio 1.1 (1.0-2.8); Alkaline Phosphatase 80 U/L (38-126); Amylase 95 U/L (30-110); Aspartate Aminotransferase 70 IU/L (14-36); BUN Creatinine Ratio 17.7 (6-22); Bilirubin Total 0.4 mg/dL (0.2-1.3); Blood Urea Nitrogen 23 mg/dL (7-17); Calcium 9.3 mg/dL (8.4-10.2); Carbon Dioxide 24 mmol/L (22-32); Chloride 106 mmol/L (98-107); Estimated Glomerular Filt Rate 40.4 mL/min (>60); Globulin 3.4 g/dL (1.7-4.1); Glucose 135 mg/dL (80-110); HEMOLYSIS < 15 (0-50); Lipase 125 U/L (23-300); Potassium 4.2 mmol/L (3.4-5.1); Sodium 140 mmol/L (137-145); Total Protein 7.2 g/dL (6.3-8.2)
--- NOTE | 2019-02-10 14:28 | ED.FEMALEGU ---
HPI - Female Genitourinary <Candida Cates, FILM INSPECTOR-BC - Last Filed: 02/10/19 14:37> General Chief complaint: Urogenital-Female Stated complaint: UTI, itchy, headache Time Seen by Provider: 02/10/19 12:24 Source: patient and family Mode of arrival: ambulatory Limitations: no limitations History of Present Illness HPI Narrative: The patient is a 69-year-old female renal disease who presents with a chief complaint of continued UTI symptoms, low back pain, and generalized itching. On Monday for UTI, and had Bactrim prescribed. She did not go fill her antibiotic, and states she did not know that she continuous pickling line pickler an antibiotic. She denies any fevers, but complains of chills. Complains of low back pain. States she feels very itchy in general, and took 1 Benadryl yesterday for. She states that she did have a headache, so she took 1 Tylenol yesterday. She denies any overt fevers, abdominal pain chest pain or shortness of breath. The patient later stated she did not read her discharge instructions from her previous visit, which instructed her to continuous pickling line pickler her prescription at the [facility]. Related Data Home Medications Medication Instructions Recorded Confirmed Calcium/D3/Zing 1 tab PO DAILY 06/08/18 06/08/18 biotin 1 tab PO DAILY 06/08/18 06/08/18 cetirizine [Zyrtec] 10 mg PO DAILY 06/08/18 06/08/18 fluoxetine 20 mg PO DAILY 06/08/18 02/05/19 gabapentin 300 mg PO BID 06/08/18 06/08/18 hydrochlorothiazide 12.5 mg PO DAILY 06/08/18 06/08/18 ibuprofen 200 mg PO PRN PRN 06/08/18 06/08/18 magnesium oxide 500 mg PO DAILY 06/08/18 06/08/18 yembkmxa-vlr-MT-lycopen-lutein 1 tab PO DAILY 06/08/18 06/08/18 [Centrum Silver] pantoprazole 40 mg PO DAILY 06/08/18 06/08/18 simvastatin 20 mg PO BEDTIME 06/08/18 02/05/19 tizanidine 4 mg PO BEDTIME PRN 06/08/18 06/08/18 amlodipine 2.5 mg PO DAILY 02/05/19 02/05/19 Previous Rx's Medication Instructions Recorded sulfamethoxazole-trimethoprim 1 tab PO BID #14 tab 02/05/19 [Bactrim DS] Allergies Allergy/AdvReac Type Severity Reaction Status Date / Time Penicillins Allergy Hives Verified 02/10/19 12:27 Review of Systems <Candida Cates [facility] - Last Filed: 02/10/19 14:37> Review of Systems GENERAL: Denies chills, fatigue, malaise, fever, sweats. HEENT: Denies sinus pain, ear pain, sore throat, difficulty swallowing, dizziness. RESPIRATORY: Denies dyspnea, cough, wheezing, hemoptysis, sputum. CARDIOVASCULAR: Denies chest pain, palpitations, orthopnea, edema, GASTROINTESTINAL: See HPI : See HPI MUSCULOSKELETAL: See HPI SKIN: Denies rash, skin lesions, or other NEUROLOGIC: Denies weakness, headache, numbness, change in speech, confusion, seizures, incoordination. PSYCHIATRIC: No concerning psychosocial issues. 12 point review of systems is negative except for those stated above PFSH <Candida Cates [facility] - Last Filed: 02/10/19 14:37> Social History Smoking Status: Former smoker Exam <Candida Cates [facility] - Last Filed: 02/10/19 14:37> Narrative Exam Narrative: GENERAL: Elderly female in no acute distress HEAD: Atraumatic. Normocephalic. No temporal or scalp tenderness. EYES: Pupils equal round and reactive. Extraocular motions intact. No scleral icterus. No injection or drainage. ENT: Nose without bleeding, purulent drainage or septal hematoma. Throat without erythema, tonsillar hypertrophy or exudate. Uvula midline. Airway patent. NECK: Trachea midline. No JVD or lymphadenopathy. Supple, nontender, no meningeal signs. CARDIOVASCULAR: Regular rate and rhythm RESPIRATORY: Clear to auscultation. Breath sounds equal bilaterally. No wheezes, rales, or rhonchi. No cough. No increased respiratory effort. No accessory muscle use. GASTROINTESTINAL: Abdomen soft, non-tender, nondistended. No hepato-splenomegaly, or palpable masses. No guarding. Active bowel sounds all 4 quadrants. EXTREMITIES: No clubbing, cyanosis, or edema. No joint tenderness, effusion, or edema noted. BACK: Nontender without deformity or crepitance. No flank tenderness. NEURO: AOx3. SKIN: No rash or erythema. Initial Vital Signs Initial Vital Signs: Vital Signs Temperature 97.5 F L 02/10/19 12:21 Pulse Rate 80 02/10/19 12:21 Respiratory Rate 16 02/10/19 12:21 Blood Pressure 134/67 02/10/19 12:21 Pulse Oximetry 96 02/10/19 12:21 <Rossana Llanes DO - Last Filed: 02/11/19 07:30> Initial Vital Signs Initial Vital Signs: Vital Signs Temperature 97.5 F L 02/10/19 12:21 Pulse Rate 80 02/10/19 12:21 Respiratory Rate 16 02/10/19 12:21 Blood Pressure 134/67 02/10/19 12:21 Pulse Oximetry 96 02/10/19 12:21 Course <BROWN Burgos - Last Filed: 02/10/19 14:37> Orders Ordered: ED Orders 02/10/19 12:28 Urinalysis and Microscopic Stat 02/10/19 13:20 Amylase Stat Complete Blood Count AUTO DIFF Stat Comprehensive Metabolic Panel Stat Lipase Stat Vital Signs - 8 hr 02/10/19 12:21 Temperature 97.5 F L Pulse Rate 80 Respiratory Rate 16 Blood Pressure 134/67 Pulse Oximetry 96 <Rossana Llanes DO - Last Filed: 02/11/19 07:30> Orders Ordered: ED Orders 02/10/19 12:28 Urinalysis and Microscopic Stat 02/10/19 13:20 Amylase Stat Complete Blood Count AUTO DIFF Stat Comprehensive Metabolic Panel Stat Lipase Stat Vital Signs - 8 hr 02/10/19 12:21 Temperature 97.5 F L Pulse Rate 80 Respiratory Rate 16 Blood Pressure 134/67 Pulse Oximetry 96 MDM - Female Genitourinary <BROWN Burgos - Last Filed: 02/10/19 14:37> Lab Data Result diagrams: 02/10/19 13:20 02/10/19 13:20 Lab Results 02/10/19 02/10/19 02/10/19 Range/Units 12:28 13:20 13:20 WBC 4.8 (4.5-11.0) X10^3/uL RBC 3.78 L (4.0-5.2) X10^6/uL Hgb 12.0 (12.0-16.0) g/dL Hct 35.4 L (36-46) % MCV 93.6 (80-100) fL MCH 31.7 (26-34) PG MCHC 33.9 (30-36) % RDW 12.5 (11.6-14.8) % Plt Count 204 (150-400) X10^3/uL Neut % (Auto) 70.8 (50-75) % Lymph % (Auto) 15.5 L (25-40) % [place] % (Auto) 6.9 (3-14) % Eos % (Auto) 4.2 H (2-4) % Baso % (Auto) 2.6 H (0-2) % Neut # (Auto) 3400 (0323-9460) /uL Lymph # (Auto) 800 L (9816-6458) /uL [place] # (Auto) 300 (0-900) /uL Eos # (Auto) 200 (0-450) /uL Baso # (Auto) 100 (0-100) /uL Sodium 140 (137-145) mmol/L Potassium 4.2 (3.4-5.1) mmol/L Chloride 106 (98-107) mmol/L Carbon Dioxide 24 (22-32) mmol/L BUN 23 H (7-17) mg/dL Creatinine 1.30 H (0.52-1.04) mg/dL Estimated GFR 40.4 L (>60) mL/min BUN/Creatinine Ratio 17.7 (6-22) Glucose 135 H (80-110) mg/dL Calcium 9.3 (8.4-10.2) mg/dL Total Bilirubin 0.4 (0.2-1.3) mg/dL AST 70 H (14-36) IU/L ALT 26 (9-52) IU/L Alkaline Phosphatase 80 (38-126) U/L Total Protein 7.2 (6.3-8.2) g/dL Albumin 3.8 (3.5-5.0) g/dL Globulin 3.4 (1.7-4.1) g/dL Albumin/Globulin Ratio 1.1 (1.0-2.8) Amylase 95 (30-110) U/L Lipase 125 (23-300) U/L Urine Color Yellow Urine Appearance Clear Urine pH 5.0 (4.5-8.0) Ur Specific [place] 1.015 (1.000-1.035) Urine Protein Negative (Negative) Urine Glucose (UA) Negative (Negative) g/dL Urine Ketones Negative (NEGATIVE) Urine Occult Blood 1+ H (Negative) Urine Nitrate Negative (Negative) Urine Bilirubin Negative (NEGATIVE) Urine Urobilinogen 0.2 (0.2) E.U./dL Ur Leukocyte Esterase Negative (NEGATIVE) Urine RBC 1-5/hpf (0-5/HPF) Urine WBC 0-1/hpf (0-5/HPF) Ur Squamous Epith Cells 5-10 /hpf H (0-5/HPF) Amorphous Sediment 1+ Urine Bacteria Occasional (0-1) D (None) Hyaline Casts 1-5/lpf (None) Urine Mucus 1+ H (Negative) Ur Culture Indicated? Cult not indicated MDM Narrative Medical decision making narrative: The patient is a 69-year-old female who presents with a chief complaint of continued UTI symptoms, back pain, chills who was seen at this facility several days ago and did not continuous pickling line pickler her prescription for her antibiotic for her urinary tract infection. She is nontoxic appearing, afebrile, has no leukocytosis. Previous cultures illustrate sensitivity to Bactrim. I discussed at length that she should continuous pickling line pickler her prescription at the [facility] has an untreated urinary tract infection could account for several of her symptoms such as back pain, chills etc. Encourage PCP follow-up. Discussed coming back to the ER for any acute concerns such as chest pain, shortness of breath, inability keep down fluids etc. <Rossana Llanes, DO - Last Filed: 02/11/19 07:30> Lab Data Lab Results 02/10/19 02/10/19 02/10/19 Range/Units 12:28 13:20 13:20 WBC 4.8 (4.5-11.0) X10^3/uL RBC 3.78 L (4.0-5.2) X10^6/uL Hgb 12.0 (12.0-16.0) g/dL Hct 35.4 L (36-46) % MCV 93.6 (80-100) fL MCH 31.7 (26-34) PG MCHC 33.9 (30-36) % RDW 12.5 (11.6-14.8) % Plt Count 204 (150-400) X10^3/uL Neut % (Auto) 70.8 (50-75) % Lymph % (Auto) 15.5 L (25-40) % [place] % (Auto) 6.9 (3-14) % Eos % (Auto) 4.2 H (2-4) % Baso % (Auto) 2.6 H (0-2) % Neut # (Auto) 3400 (0555-4500) /uL Lymph # (Auto) 800 L (1962-7018) /uL [place] # (Auto) 300 (0-900) /uL Eos # (Auto) 200 (0-450) /uL Baso # (Auto) 100 (0-100) /uL Sodium 140 (137-145) mmol/L Potassium 4.2 (3.4-5.1) mmol/L Chloride 106 (98-107) mmol/L Carbon Dioxide 24 (22-32) mmol/L BUN 23 H (7-17) mg/dL Creatinine 1.30 H (0.52-1.04) mg/dL Estimated GFR 40.4 L (>60) mL/min BUN/Creatinine Ratio 17.7 (6-22) Glucose 135 H (80-110) mg/dL Calcium 9.3 (8.4-10.2) mg/dL Total Bilirubin 0.4 (0.2-1.3) mg/dL AST 70 H (14-36) IU/L ALT 26 (9-52) IU/L Alkaline Phosphatase 80 (38-126) U/L Total Protein 7.2 (6.3-8.2) g/dL Albumin 3.8 (3.5-5.0) g/dL Globulin 3.4 (1.7-4.1) g/dL Albumin/Globulin Ratio 1.1 (1.0-2.8) Amylase 95 (30-110) U/L Lipase 125 (23-300) U/L Urine Color Yellow Urine Appearance Clear Urine pH 5.0 (4.5-8.0) Ur Specific [place] 1.015 (1.000-1.035) Urine Protein Negative (Negative) Urine Glucose (UA) Negative (Negative) g/dL Urine Ketones Negative (NEGATIVE) Urine Occult Blood 1+ H (Negative) Urine Nitrate Negative (Negative) Urine Bilirubin Negative (NEGATIVE) Urine Urobilinogen 0.2 (0.2) E.U./dL Ur Leukocyte Esterase Negative (NEGATIVE) Urine RBC 1-5/hpf (0-5/HPF) Urine WBC 0-1/hpf (0-5/HPF) Ur Squamous Epith Cells 5-10 /hpf H (0-5/HPF) Amorphous Sediment 1+ Urine Bacteria Occasional (0-1) D (None) Hyaline Casts 1-5/lpf (None) Urine Mucus 1+ H (Negative) Ur Culture Indicated? Cult not indicated Discharge Plan Departure Patient Disposition: Home Clinical Impression: Urinary tract infection Qualifiers: Urinary tract infection type: acute cystitis Hematuria presence: with hematuria Qualified Code(s): N30.01 - Acute cystitis with hematuria Discharge Date/Time: 02/10/19 14:42 Interventions: ED Discharge Assessment Last Done: 02/10/19 14:42 Instructions: DI for Urinary Tract Infection (UTI) Activity Restrictions/Additional Instructions: Please continuous pickling line pickler the prescription that was sent to the [facility]. Please start taking this antibiotic. Please push fluids. Monitor for worsening despite antibiotics such as inability keep down fluids. Please come back to the emergency department for any acute concerns such as inability keep down fluids. Prescriptions: No Action amlodipine 2.5 mg tablet 2.5 mg PO DAILY RF: 0 sulfamethoxazole-trimethoprim [Bactrim DS] 800-160 mg tablet 1 tab PO BID Qty: 14 RF: 0 cetirizine [Zyrtec] 10 mg Tablet 10 mg PO DAILY RF: 0 tizanidine 4 mg tablet 4 mg PO BEDTIME PRN (Reason: Spasms) RF: 0 pantoprazole 40 mg tablet,delayed release (DR/EC) 40 mg PO DAILY RF: 0 simvastatin 20 mg tablet 20 mg PO BEDTIME RF: 0 ibuprofen 200 mg Tablet 200 mg PO PRN PRN (Reason: pain) RF: 0 magnesium oxide 500 mg Tablet 500 mg PO DAILY RF: 0 gabapentin 300 mg capsule 300 mg PO BID RF: 0 fluoxetine 20 mg capsule 20 mg PO DAILY RF: 0 hytdfztz-tth-DQ-lycopen-lutein [Centrum Silver] 0.4-300-250 mg-mcg-mcg Tablet 1 tab PO DAILY RF: 0 hydrochlorothiazide 12.5 mg tablet 12.5 mg PO DAILY RF: 0 Calcium/D3/Zing 1 tab PO DAILY RF: 0 biotin 1 tab PO DAILY RF: 0 Referrals: Rahul De Jesus MD [Non-Staff] - <Rossana Llanes DO - Last Filed: 02/11/19 07:30> Cosign ED Attending Cosignature Attestation: I was immediately available in the department for consultation. Documentation has been reviewed. I agree with assessment and plan.
--- NOTE | 2019-02-10 14:31 | ED_ITS ---
HPI - Female Genitourinary <Candida Cates, [employer] M[facility]-BC - Last Filed: 02/10/19 14:37> General Chief complaint: Urogenital-Female Stated complaint: UTI, itchy, headache Time Seen by Provider: 02/10/19 12:24 Source: patient and family Mode of arrival: ambulatory Limitations: no limitations History of Present Illness HPI Narrative: The patient is a 69-year-old female renal disease who presents with a chief complaint of continued UTI symptoms, low back pain, and generalized itching. On Monday for UTI, and had Bactrim prescribed. She did not go fill her antibiotic, and states she did not know that she bead picker an antibiotic. She denies any fevers, but complains of chills. Complains of low back pain. States she feels very itchy in general, and took 1 Benadryl yesterday for. She states that she did have a headache, so she took 1 Tylenol yesterday. She denies any overt fevers, abdominal pain chest pain or shortness of breath. The patient later stated she did not read her discharge instructions from her previous visit, which instructed her to bead picker her prescription at the [facility]. Related Data Home Medications Medication Instructions Recorded Confirmed Calcium/D3/Zing 1 tab PO DAILY 06/08/18 06/08/18 biotin 1 tab PO DAILY 06/08/18 06/08/18 cetirizine [Zyrtec] 10 mg PO DAILY 06/08/18 06/08/18 fluoxetine 20 mg PO DAILY 06/08/18 02/05/19 gabapentin 300 mg PO BID 06/08/18 06/08/18 hydrochlorothiazide 12.5 mg PO DAILY 06/08/18 06/08/18 ibuprofen 200 mg PO PRN PRN 06/08/18 06/08/18 magnesium oxide 500 mg PO DAILY 06/08/18 06/08/18 iohdipjx-kwk-HG-lycopen-lutein 1 tab PO DAILY 06/08/18 06/08/18 [Centrum Silver] pantoprazole 40 mg PO DAILY 06/08/18 06/08/18 simvastatin 20 mg PO BEDTIME 06/08/18 02/05/19 tizanidine 4 mg PO BEDTIME PRN 06/08/18 06/08/18 amlodipine 2.5 mg PO DAILY 02/05/19 02/05/19 Previous Rx's Medication Instructions Recorded sulfamethoxazole-trimethoprim 1 tab PO BID #14 tab 02/05/19 [Bactrim DS] Allergies Allergy/AdvReac Type Severity Reaction Status Date / Time Penicillins Allergy Hives Verified 02/10/19 12:27 Review of Systems <Candida Cates [facility] - Last Filed: 02/10/19 14:37> Review of Systems GENERAL: Denies chills, fatigue, malaise, fever, sweats. HEENT: Denies sinus pain, ear pain, sore throat, difficulty swallowing, dizziness. RESPIRATORY: Denies dyspnea, cough, wheezing, hemoptysis, sputum. CARDIOVASCULAR: Denies chest pain, palpitations, orthopnea, edema, GASTROINTESTINAL: See HPI : See HPI MUSCULOSKELETAL: See HPI SKIN: Denies rash, skin lesions, or other NEUROLOGIC: Denies weakness, headache, numbness, change in speech, confusion, seizures, incoordination. PSYCHIATRIC: No concerning psychosocial issues. 12 point review of systems is negative except for those stated above PFSH <Candida Cates [facility] - Last Filed: 02/10/19 14:37> Social History Smoking Status: Former smoker Exam <Candida Cates [facility] - Last Filed: 02/10/19 14:37> Narrative Exam Narrative: GENERAL: Elderly female in no acute distress HEAD: Atraumatic. Normocephalic. No temporal or scalp tenderness. EYES: Pupils equal round and reactive. Extraocular motions intact. No scleral icterus. No injection or drainage. ENT: Nose without bleeding, purulent drainage or septal hematoma. Throat without erythema, tonsillar hypertrophy or exudate. Uvula midline. Airway patent. NECK: Trachea midline. No JVD or lymphadenopathy. Supple, nontender, no meningeal signs. CARDIOVASCULAR: Regular rate and rhythm RESPIRATORY: Clear to auscultation. Breath sounds equal bilaterally. No wheezes, rales, or rhonchi. No cough. No increased respiratory effort. No accessory muscle use. GASTROINTESTINAL: Abdomen soft, non-tender, nondistended. No hepato- splenomegaly, or palpable masses. No guarding. Active bowel sounds all 4 quadrants. EXTREMITIES: No clubbing, cyanosis, or edema. No joint tenderness, effusion, or edema noted. BACK: Nontender without deformity or crepitance. No flank tenderness. NEURO: AOx3. SKIN: No rash or erythema. Initial Vital Signs Initial Vital Signs: Vital Signs Temperature 97.5 F L 02/10/19 12:21 Pulse Rate 80 02/10/19 12:21 Respiratory Rate 16 02/10/19 12:21 Blood Pressure 134/67 02/10/19 12:21 Pulse Oximetry 96 02/10/19 12:21 <Rossana Llanes DO - Last Filed: 02/11/19 07:30> Initial Vital Signs Initial Vital Signs: Vital Signs Temperature 97.5 F L 02/10/19 12:21 Pulse Rate 80 02/10/19 12:21 Respiratory Rate 16 02/10/19 12:21 Blood Pressure 134/67 02/10/19 12:21 Pulse Oximetry 96 02/10/19 12:21 Course <BROWN Burgos - Last Filed: 02/10/19 14:37> Orders Ordered: ED Orders 02/10/19 12:28 Urinalysis and Microscopic Stat 02/10/19 13:20 Amylase Stat Complete Blood Count AUTO DIFF Stat Comprehensive Metabolic Panel Stat Lipase Stat Vital Signs - 8 hr 02/10/19 12:21 Temperature 97.5 F L Pulse Rate 80 Respiratory Rate 16 Blood Pressure 134/67 Pulse Oximetry 96 <Rossana Llanes DO - Last Filed: 02/11/19 07:30> Orders Ordered: ED Orders 02/10/19 12:28 Urinalysis and Microscopic Stat 02/10/19 13:20 Amylase Stat Complete Blood Count AUTO DIFF Stat Comprehensive Metabolic Panel Stat Lipase Stat Vital Signs - 8 hr 02/10/19 12:21 Temperature 97.5 F L Pulse Rate 80 Respiratory Rate 16 Blood Pressure 134/67 Pulse Oximetry 96 MDM - Female Genitourinary <BROWN Burgos - Last Filed: 02/10/19 14:37> Lab Data Result diagrams: 02/10/19 13:20 02/10/19 13:20 Lab Results 02/10/19 02/10/19 02/10/19 Range/Units 12:28 13:20 13:20 WBC 4.8 (4.5-11.0) X10^3/uL RBC 3.78 L (4.0-5.2) X10^6/uL Hgb 12.0 (12.0-16.0) g/dL Hct 35.4 L (36-46) % MCV 93.6 (80-100) fL MCH 31.7 (26-34) PG MCHC 33.9 (30-36) % RDW 12.5 (11.6-14.8) % Plt Count 204 (150-400) X10^3/uL Neut % (Auto) 70.8 (50-75) % Lymph % (Auto) 15.5 L (25-40) % [place] % (Auto) 6.9 (3-14) % Eos % (Auto) 4.2 H (2-4) % Baso % (Auto) 2.6 H (0-2) % Neut # (Auto) 3400 (1259-5312) /uL Lymph # (Auto) 800 L (3377-1108) /uL [place] # (Auto) 300 (0-900) /uL Eos # (Auto) 200 (0-450) /uL Baso # (Auto) 100 (0-100) /uL Sodium 140 (137-145) mmol/L Potassium 4.2 (3.4-5.1) mmol/L Chloride 106 (98-107) mmol/L Carbon Dioxide 24 (22-32) mmol/L BUN 23 H (7-17) mg/dL Creatinine 1.30 H (0.52-1.04) mg/dL Estimated GFR 40.4 L (>60) mL/min BUN/Creatinine Ratio 17.7 (6-22) Glucose 135 H (80-110) mg/dL Calcium 9.3 (8.4-10.2) mg/dL Total Bilirubin 0.4 (0.2-1.3) mg/dL AST 70 H (14-36) IU/L ALT 26 (9-52) IU/L Alkaline Phosphatase 80 (38-126) U/L Total Protein 7.2 (6.3-8.2) g/dL Albumin 3.8 (3.5-5.0) g/dL Globulin 3.4 (1.7-4.1) g/dL Albumin/Globulin Ratio 1.1 (1.0-2.8) Amylase 95 (30-110) U/L Lipase 125 (23-300) U/L Urine Color Yellow Urine Appearance Clear Urine pH 5.0 (4.5-8.0) Ur Specific [place] 1.015 (1.000-1.035) Urine Protein Negative (Negative) Urine Glucose (UA) Negative (Negative) g/dL Urine Ketones Negative (NEGATIVE) Urine Occult Blood 1+ H (Negative) Urine Nitrate Negative (Negative) Urine Bilirubin Negative (NEGATIVE) Urine Urobilinogen 0.2 (0.2) E.U./dL Ur Leukocyte Esterase Negative (NEGATIVE) Urine RBC 1-5/hpf (0-5/HPF) Urine WBC 0-1/hpf (0-5/HPF) Ur Squamous Epith Cells 5-10 /hpf H (0-5/HPF) Amorphous Sediment 1+ Urine Bacteria Occasional (0-1) D (None) Hyaline Casts 1-5/lpf (None) Urine Mucus 1+ H (Negative) Ur Culture Indicated? Cult not indicated MDM Narrative Medical decision making narrative: The patient is a 69-year-old female who presents with a chief complaint of continued UTI symptoms, back pain, chills who was seen at this facility several days ago and did not bead picker her prescription for her antibiotic for her urinary tract infection. She is nontoxic appearing, afebrile, has no leukocytosis. Previous cultures illustrate sensitivity to Bactrim. I discussed at length that she should bead picker her prescription at the [facility] pharmacy has an untreated urinary tract infection could account for several of her symptoms such as back pain, chills etc. Encourage PCP follow-up. Discussed coming back to the ER for any acute concerns such as chest pain, shortness of breath, inability keep down fluids etc. <Rossana Llanes, DO - Last Filed: 02/11/19 07:30> Lab Data Lab Results 02/10/19 02/10/19 02/10/19 Range/Units 12:28 13:20 13:20 WBC 4.8 (4.5-11.0) X10^3/uL RBC 3.78 L (4.0-5.2) X10^6/uL Hgb 12.0 (12.0-16.0) g/dL Hct 35.4 L (36-46) % MCV 93.6 (80-100) fL MCH 31.7 (26-34) PG MCHC 33.9 (30-36) % RDW 12.5 (11.6-14.8) % Plt Count 204 (150-400) X10^3/uL Neut % (Auto) 70.8 (50-75) % Lymph % (Auto) 15.5 L (25-40) % [place] % (Auto) 6.9 (3-14) % Eos % (Auto) 4.2 H (2-4) % Baso % (Auto) 2.6 H (0-2) % Neut # (Auto) 3400 (4146-9023) /uL Lymph # (Auto) 800 L (4548-5525) /uL [place] # (Auto) 300 (0-900) /uL Eos # (Auto) 200 (0-450) /uL Baso # (Auto) 100 (0-100) /uL Sodium 140 (137-145) mmol/L Potassium 4.2 (3.4-5.1) mmol/L Chloride 106 (98-107) mmol/L Carbon Dioxide 24 (22-32) mmol/L BUN 23 H (7-17) mg/dL Creatinine 1.30 H (0.52-1.04) mg/dL Estimated GFR 40.4 L (>60) mL/min BUN/Creatinine Ratio 17.7 (6-22) Glucose 135 H (80-110) mg/dL Calcium 9.3 (8.4-10.2) mg/dL Total Bilirubin 0.4 (0.2-1.3) mg/dL AST 70 H (14-36) IU/L ALT 26 (9-52) IU/L Alkaline Phosphatase 80 (38-126) U/L Total Protein 7.2 (6.3-8.2) g/dL Albumin 3.8 (3.5-5.0) g/dL Globulin 3.4 (1.7-4.1) g/dL Albumin/Globulin Ratio 1.1 (1.0-2.8) Amylase 95 (30-110) U/L Lipase 125 (23-300) U/L Urine Color Yellow Urine Appearance Clear Urine pH 5.0 (4.5-8.0) Ur Specific [place] 1.015 (1.000-1.035) Urine Protein Negative (Negative) Urine Glucose (UA) Negative (Negative) g/dL Urine Ketones Negative (NEGATIVE) Urine Occult Blood 1+ H (Negative) Urine Nitrate Negative (Negative) Urine Bilirubin Negative (NEGATIVE) Urine Urobilinogen 0.2 (0.2) E.U./dL Ur Leukocyte Esterase Negative (NEGATIVE) Urine RBC 1-5/hpf (0-5/HPF) Urine WBC 0-1/hpf (0-5/HPF) Ur Squamous Epith Cells 5-10 /hpf H (0-5/HPF) Amorphous Sediment 1+ Urine Bacteria Occasional (0-1) D (None) Hyaline Casts 1-5/lpf (None) Urine Mucus 1+ H (Negative) Ur Culture Indicated? Cult not indicated Discharge Plan Departure Patient Disposition: Home Clinical Impression: Urinary tract infection Qualifiers: Urinary tract infection type: acute cystitis Hematuria presence: with hematuria Qualified Code(s): N30.01 - Acute cystitis with hematuria Discharge Date/Time: 02/10/19 14:42 Interventions: ED Discharge Assessment Last Done: 02/10/19 14:42 Instructions: DI for Urinary Tract Infection (UTI) Activity Restrictions/Additional Instructions: Please bead picker the prescription that was sent to the [facility]. Please start taking this antibiotic. Please push fluids. Monitor for worsening despite antibiotics such as inability keep down fluids. Please come back to the emergency department for any acute concerns such as inability keep down fluids. Prescriptions: No Action amlodipine 2.5 mg tablet 2.5 mg PO DAILY RF: 0 sulfamethoxazole-trimethoprim [Bactrim DS] 800-160 mg tablet 1 tab PO BID Qty: 14 RF: 0 cetirizine [Zyrtec] 10 mg Tablet 10 mg PO DAILY RF: 0 tizanidine 4 mg tablet 4 mg PO BEDTIME PRN (Reason: Spasms) RF: 0 pantoprazole 40 mg tablet,delayed release (DR/EC) 40 mg PO DAILY RF: 0 simvastatin 20 mg tablet 20 mg PO BEDTIME RF: 0 ibuprofen 200 mg Tablet 200 mg PO PRN PRN (Reason: pain) RF: 0 magnesium oxide 500 mg Tablet 500 mg PO DAILY RF: 0 gabapentin 300 mg capsule 300 mg PO BID RF: 0 fluoxetine 20 mg capsule 20 mg PO DAILY RF: 0 iqnfixgo-zrx-GH-lycopen-lutein [Centrum Silver] 0.4-300-250 mg-mcg-mcg Tablet 1 tab PO DAILY RF: 0 hydrochlorothiazide 12.5 mg tablet 12.5 mg PO DAILY RF: 0 Calcium/D3/Zing 1 tab PO DAILY RF: 0 biotin 1 tab PO DAILY RF: 0 Referrals: Rahul De Jesus MD [Non-Staff] - <Rossana Llanes DO - Last Filed: 02/11/19 07:30> Cosign ED Attending Cosignature Attestation: I was immediately available in the department for consultation. Documentation has been reviewed. I agree with assessment and plan.
[2019-02-10 14:42] VITALS: BP 123/65; PULSE 80; RESP 20; O2SAT 98
== END 2019-02-10 14:42 | disposition home or self-care (01) ==
PROVIDERS: Emergency Medicine; Emergency Provider Nurse Practitioner Family
DX: N30.01 Acute cystitis with hematuria (principal)
CPT/HCPCS: 36415; 80053; 81001; 82150; 83690; 85025; 99282; 99283

== ENCOUNTER 2020-08-18 11:28 | Emergency (ER) | payer MEDICARE, OTHER, SELFPAY ==
[2020-08-18] VITALS (10 sets, daily range): BP systolic 126–151; BP diastolic 65–72; PULSE 48–71; RESP 13–19; TEMP 36.5; O2SAT 77–97; BMI 26.6
[2020-08-18 11:56] LABS: RBC Urine None Seen (0-5/HPF)
[2020-08-18 12:01] LABS: Add Manual Diff / Slide Review NO; Basophils Absolute Auto 100 /uL (0-100); Basophils Percent Auto 1.3 % (0-2); Eosinophils Absolute Auto 200 /uL (0-450); Eosinophils Percent Auto 3.7 % (2-4); Hematocrit 38.9 % (36-46); Hemoglobin 13.2 g/dL (12.0-16.0); Lymphocytes Absolute Auto 2200 /uL (1100-4500); Lymphocytes Percent Auto 32.4 % (25-40); Mean Corpuscular HGB Conc 33.8 % (30-36); Mean Corpuscular Hemoglobin 31.7 PG (26-34); Mean Corpuscular Volume 93.8 fL (80-100); Monocytes Absolute Auto 500 /uL (0-900); Monocytes Percent Auto 6.7 % (3-14); Neutrophils Absolute Auto 3800 /uL (1500-7000); Neutrophils Percent Auto 55.9 % (50-75); Platelet Count 229 X10^3/uL (150-400); Red Blood Cell Count 4.15 X10^6/uL (4.0-5.2); Red Cell Distribution Width 12.7 % (11.6-14.8); White Blood Cell Count 6.8 X10^3/uL (4.5-11.0)
[2020-08-18 12:09] LABS: Bilirubin Urine UA NEGATIVE (NEGATIVE); Color Urine UA YELLOW; Glucose Urine UA NEGATIVE (Negative); Ketones Urine UA NEGATIVE (NEGATIVE); Leukocyte Esterase Urine UA 2+ (NEGATIVE); Nitrite Urine UA NEGATIVE (Negative); Occult Blood Urine UA TRACE-INTACT (Negative); Protein Urine UA NEGATIVE (Negative); Urobilinogen Urine UA 0.2 E.U./dL (0.2)
[2020-08-18 12:10] LABS: Appearance Urine UA Slightly Cloudy
[2020-08-18 12:12] LABS: Bacteria Urine Occasional (0-1); Squamous Epithelial Cell Urine 1-5 /HPF (0-5/HPF); WBC Urine 5-10/HPF (0-5/HPF)
[2020-08-18 12:13] LABS: Culture Indicated Urine Specimen Cultured
[2020-08-18 12:14] LABS: Alanine Aminotransferase 27 IU/L (<35); Albumin 4.4 g/dL (3.5-5.0); Albumin Globulin Ratio 1.2 (1.0-2.8); Alkaline Phosphatase 75 U/L (38-126); Aspartate Aminotransferase 41 IU/L (14-36); Bilirubin Total 0.3 mg/dL (0.2-1.3); Blood Urea Nitrogen 21 mg/dL (7-17); Calcium 9.6 mg/dL (8.4-10.2); Carbon Dioxide 25 mmol/L (22-32); Chloride 107 mmol/L (98-107); Globulin 3.8 g/dL (1.7-4.1); Glucose 115 mg/dL (80-110); HEMOLYSIS < 15 (0-50); Lactate (Lactic Acid) 1.6 mmol/L (0.7-2.1); Sodium 139 mmol/L (137-145); Total Protein 8.2 g/dL (6.3-8.2)
--- NOTE | 2020-08-18 12:33 | DI.CT.S_ITS ---
PROCEDURE: CT KIDNEY URETER BLADDER (KUB) INDICATIONS: Bilateral flank pain TECHNIQUE: Noncontrast 5 mm thick sections acquired from the diaphragms to the symphysis. 5 mm thick coronal and sagittal reformats were then performed. For radiation dose reduction, the following was used: automated exposure control, adjustment of mA and/or kV according to patient size. COMPARISON: [facility], US, US ABDOMEN COMPLETE, 06/09/2018, 15:33. FINDINGS: Image quality: Excellent. Lung bases: Right middle lobe, lingula left lower lobe scars and atelectasis. Heart size is normal. Urinary system: Both kidneys are normal in size. No kidney stones. There is a 6 mm indeterminate cortical hyperdense nodule in the inferior pole of the right kidney, probably a hyperdense cyst. No hydronephrosis or perinephric fat stranding. Both ureters appear non-dilated throughout their expected courses. Bladder wall thickness is normal; no calcified bladder stones. Other solid organs: Liver is normal in size. Gallbladder is normal. Pancreas is normal in contours. Spleen is normal in size. No adrenal nodules. Peritoneum and bowel: Unenhanced bowel loops demonstrate normal wall thickness and caliber. No free fluid or air. Nodes and vessels: No retroperitoneal or mesenteric adenopathy by size criteria. Aorta and inferior vena cava are normal in caliber. Abdominal wall: No ventral hernias. Pelvis: Uterus is normal. No adnexal mass. No pathological free-fluid. No free pelvic fluid. No inguinal adenopathy. There is a small left fat containing inguinal hernia. Bones: No suspicious bony lesions. No vertebral body compression fractures. 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 Trace anterolisthesis of L4 on L5. IMPRESSION: 1. No renal stone or hydronephrosis. 2. 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 Dictated by: Noni Correa M.D. on 08/18/2020 at 12:52 Approved by: Noni Correa M.D. on 08/18/2020 at 13:02
--- NOTE | 2020-08-18 13:01 | ED_ITS ---
HPI - Female Genitourinary <Candida Cates, [employer] SOLUTION MANAGER CONSULTANT-BC - Last Filed: 08/18/20 14:52> General Chief complaint: Urogenital-Female Stated complaint: KIDNEY PAIN Time Seen by Provider: 08/18/20 11:31 Source: patient Mode of arrival: Ambulatory Limitations: no limitations History of Present Illness HPI Narrative: The patient is a 70-year-old female former smoker who presents with her for chief complaint bilateral flank pain. She has a history of urinary tract infection, pyelonephritis and hematuria. She currently denies any dysuria urgency or frequency. She states the pain comes and goes, but started again a few days ago became very severe. She has some bilateral flank pain last week. No fevers muscle aches or chills. No abdominal pain. She has not taken anything to feel better. She is concerned about her kidney function given the location of the pain, as well as her history of pyelonephritis and hematuria. She denies any vaginal discharge. She denies any visible hematuria. Related Data Home Medications Medication Instructions Recorded Confirmed Calcium/D3/Zing 1 tab PO DAILY 06/08/18 06/08/18 biotin 1 tab PO DAILY 06/08/18 06/08/18 cetirizine [Zyrtec] 10 mg PO DAILY 06/08/18 06/08/18 fluoxetine 20 mg PO DAILY 06/08/18 02/05/19 gabapentin 300 mg PO BID 06/08/18 06/08/18 hydrochlorothiazide 12.5 mg PO DAILY 06/08/18 06/08/18 ibuprofen 200 mg PO PRN PRN 06/08/18 06/08/18 magnesium oxide 500 mg PO DAILY 06/08/18 06/08/18 hqgbuttr-uzb-FY-lycopen-lutein 1 tab PO DAILY 06/08/18 06/08/18 [Centrum Silver] pantoprazole 40 mg PO DAILY 06/08/18 06/08/18 simvastatin 20 mg PO BEDTIME 06/08/18 02/05/19 tizanidine 4 mg PO BEDTIME PRN 06/08/18 06/08/18 amlodipine 2.5 mg PO DAILY 02/05/19 02/05/19 Previous Rx's Medication Instructions Recorded sulfamethoxazole-trimethoprim 1 tab PO BID #14 tab 02/05/19 [Bactrim DS] cyclobenzaprine 10 mg PO TID PRN #14 tab 08/18/20 lidocaine 1 patch TOPICAL DAILY PRN #15 ea 08/18/20 sulfamethoxazole-trimethoprim 1 tab PO BID #14 tab 08/18/20 [Bactrim DS] Allergies Allergy/AdvReac Type Severity Reaction Status Date / Time Penicillins Allergy Hives Verified 08/18/20 11:38 Review of Systems <BROWN Burgos - Last Filed: 08/18/20 14:52> Review of Systems Narrative: GENERAL: Denies chills, fatigue, malaise, fever, sweats. HEENT: Denies sinus pain, ear pain, sore throat, difficulty swallowing, dizziness. RESPIRATORY: Denies dyspnea, cough, wheezing, hemoptysis, sputum. CARDIOVASCULAR: Denies chest pain, palpitations, orthopnea, edema, GASTROINTESTINAL: Denies nausea, vomiting, abdominal pain, diarrhea, constipation, melena. : See HPI MUSCULOSKELETAL: See HPI SKIN: Denies rash, skin lesions, or other NEUROLOGIC: Denies weakness, headache, numbness, change in speech, confusion, seizures, incoordination. PSYCHIATRIC: No concerning psychosocial issues. 12 point review of systems is negative except for those stated above Patient History <BROWN Burgos - Last Filed: 08/18/20 14:52> Medical History (Updated 08/18/20 @ 14:25 by BROWN Burgos) HTN (hypertension) Surgical History No pertinent past surgical history alcohol intake frequency: holidays/special occasions only Substance Use Type: does not use Exam <BROWN Burgos - Last Filed: 08/18/20 14:52> Narrative Exam Narrative: GENERAL: This is a well-nourished, well-developed patient, in no acute distress HEAD: Atraumatic. Normocephalic. No temporal or scalp tenderness. EYES: Pupils equal round and reactive. Extraocular motions intact. No scleral icterus. No injection or drainage. ENT: Nose without bleeding, purulent drainage or septal hematoma. Wearing a mask. Airway patent. NECK: Trachea midline. No JVD or lymphadenopathy. Supple, nontender, no meningeal signs. CARDIOVASCULAR: Regular rate and rhythm RESPIRATORY: Clear to auscultation. Breath sounds equal bilaterally. No wheezes, rales, or rhonchi. No cough. No increased respiratory effort. No accessory muscle use. GASTROINTESTINAL: Abdomen soft, non-tender, nondistended. No hepato- splenomegaly, or palpable masses. No guarding. EXTREMITIES: No clubbing, cyanosis, or edema. No joint tenderness, effusion, or edema noted. BACK: Nontender without deformity or crepitance. Pain to bilateral paraspinal muscles of lumbar region NEURO: AOx3. SKIN: No rash or erythema. Initial Vital Signs Initial Vital Signs: Vital Signs Temperature 97.7 F 08/18/20 11:32 Pulse Rate 71 08/18/20 11:32 Respiratory Rate 14 08/18/20 11:32 Blood Pressure 151/72 H 08/18/20 11:32 Pulse Oximetry 96 08/18/20 11:32 <Rossana Llanes DO - Last Filed: 08/19/20 07:18> Initial Vital Signs Initial Vital Signs: Vital Signs Temperature 97.7 F 08/18/20 11:32 Pulse Rate 71 08/18/20 11:32 Respiratory Rate 14 08/18/20 11:32 Blood Pressure 151/72 H 08/18/20 11:32 Pulse Oximetry 96 08/18/20 11:32 Scores <BROWN Burgos - Last Filed: 08/18/20 14:52> GCS Spruce coma scale eye opening: Spontaneous Yang coma scale verbal response: Orientated Yang coma scale motor response: Obey commands Yang coma scale total score: 15 Course <BROWN Burgos - Last Filed: 08/18/20 14:52> Orders Ordered: Discontinued Medications Cyclobenzaprine HCl (Cyclobenzaprine 10 Mg Tablet) 10 mg PO NOW ONE Stop: 08/18/20 13:12 Last Admin: 08/18/20 13:36 Dose: 10 mg Documented by: JOHNSON Lidocaine (Lidocaine Patch 1 Each Adh..Patch) 1 each TOP NOW ONE Stop: 08/18/20 13:06 Last Admin: 08/18/20 13:36 Dose: 1 each Documented by: JOHNSON Trimethoprim/Sulfamethoxazole (Trimeth/Sulfa 160/800 (Ds) Tablet) 1 tab PO NOW ONE Stop: 08/18/20 13:12 Last Admin: 08/18/20 13:36 Dose: 1 tab Documented by: JOHNSON Vital Signs Vital signs: Vital Signs - 8 hr 08/18/20 11:32 08/18/20 11:36 08/18/20 11:37 Temperature 97.7 F Pulse Rate 71 Respiratory Rate 14 Blood Pressure 151/72 H 151/72 H Pulse Oximetry 96 95 95 08/18/20 13:09 08/18/20 13:10 08/18/20 13:13 Temperature Pulse Rate 67 Respiratory Rate 16 Blood Pressure 126/68 Pulse Oximetry 77 L 94 08/18/20 13:30 08/18/20 14:00 08/18/20 14:30 Temperature Pulse Rate 48 L 48 L Respiratory Rate 19 13 18 Blood Pressure 145/68 H 138/67 Pulse Oximetry 94 97 93 08/18/20 14:31 Temperature Pulse Rate Respiratory Rate Blood Pressure 130/65 Pulse Oximetry <Rossana Llanes DO - Last Filed: 08/19/20 07:18> Orders Ordered: Discontinued Medications Cyclobenzaprine HCl (Cyclobenzaprine 10 Mg Tablet) 10 mg PO NOW ONE Stop: 08/18/20 13:12 Last Admin: 08/18/20 13:36 Dose: 10 mg Documented by: JOHNSON Lidocaine (Lidocaine Patch 1 Each Adh..Patch) 1 each TOP NOW ONE Stop: 08/18/20 13:06 Last Admin: 08/18/20 13:36 Dose: 1 each Documented by: JOHNSON Trimethoprim/Sulfamethoxazole (Trimeth/Sulfa 160/800 (Ds) Tablet) 1 tab PO NOW ONE Stop: 08/18/20 13:12 Last Admin: 08/18/20 13:36 Dose: 1 tab Documented by: JOHNSON Vital Signs Vital signs: Vital Signs - 8 hr 08/18/20 11:32 08/18/20 11:36 08/18/20 11:37 Temperature 97.7 F Pulse Rate 71 Respiratory Rate 14 Blood Pressure 151/72 H 151/72 H Pulse Oximetry 96 95 95 08/18/20 13:09 08/18/20 13:10 08/18/20 13:13 Temperature Pulse Rate 67 Respiratory Rate 16 Blood Pressure 126/68 Pulse Oximetry 77 L 94 08/18/20 13:30 08/18/20 14:00 08/18/20 14:30 Temperature Pulse Rate 48 L 48 L Respiratory Rate 19 13 18 Blood Pressure 145/68 H 138/67 Pulse Oximetry 94 97 93 08/18/20 14:31 Temperature Pulse Rate Respiratory Rate Blood Pressure 130/65 Pulse Oximetry MDM - Female Genitourinary <Candida Videsmer, [employer] SOLUTION MANAGER CONSULTANT- - Last Filed: 08/18/20 14:52> Lab Data Attestation: I reviewed the patient's lab results. Result diagrams: 08/18/20 11:50 08/18/20 11:50 Labs: Lab Results 08/18/20 08/18/20 08/18/20 Range/Units 11:50 11:50 11:50 WBC 6.8 (4.5-11.0) X10^3/uL RBC 4.15 (4.0-5.2) X10^6/uL Hgb 13.2 (12.0-16.0) g/dL Hct 38.9 (36-46) % MCV 93.8 (80-100) fL MCH 31.7 (26-34) PG MCHC 33.8 (30-36) % RDW 12.7 (11.6-14.8) % Plt Count 229 (150-400) X10^3/uL Neut % (Auto) 55.9 (50-75) % Lymph % (Auto) 32.4 (25-40) % Garrard % (Auto) 6.7 (3-14) % Eos % (Auto) 3.7 (2-4) % Baso % (Auto) 1.3 (0-2) % Neut # (Auto) 3800 (2248-3720) /uL Lymph # (Auto) 2200 (2367-3731) /uL Garrard # (Auto) 500 (0-900) /uL Eos # (Auto) 200 (0-450) /uL Baso # (Auto) 100 (0-100) /uL Sodium 139 (137-145) mmol/L Potassium 4.0 (3.4-5.1) mmol/L Chloride 107 (98-107) mmol/L Carbon Dioxide 25 (22-32) mmol/L BUN 21 H (7-17) mg/dL Creatinine 1.40 H (0.52-1.04) mg/dL Estimated GFR 37.0 L (>60) mL/min BUN/Creatinine Ratio 15.0 (6-22) Glucose 115 H (80-110) mg/dL Lactate 1.6 (0.7-2.1) mmol/L Calcium 9.6 (8.4-10.2) mg/dL Total Bilirubin 0.3 (0.2-1.3) mg/dL AST 41 H (14-36) IU/L ALT 27 (<35) IU/L Alkaline Phosphatase 75 (38-126) U/L Total Protein 8.2 (6.3-8.2) g/dL Albumin 4.4 (3.5-5.0) g/dL Globulin 3.8 (1.7-4.1) g/dL Albumin/Globulin Ratio 1.2 (1.0-2.8) Urine Color Urine Appearance Urine pH (4.5-8.0) Ur Specific [place] (1.000-1.035) Urine Protein (Negative) Urine Glucose (UA) (Negative) g/dL Urine Ketones (NEGATIVE) Urine Occult Blood (Negative) Urine Nitrate (Negative) Urine Bilirubin (NEGATIVE) Urine Urobilinogen (0.2) E.U./dL Ur Leukocyte Esterase (NEGATIVE) Urine RBC (0-5/HPF) Urine WBC (0-5/HPF) Ur Squamous Epith Cells (0-5/HPF) Urine Bacteria (None) Ur Culture Indicated? 08/18/20 Range/Units 11:52 WBC (4.5-11.0) X10^3/uL RBC (4.0-5.2) X10^6/uL Hgb (12.0-16.0) g/dL Hct (36-46) % MCV (80-100) fL MCH (26-34) PG MCHC (30-36) % RDW (11.6-14.8) % Plt Count (150-400) X10^3/uL Neut % (Auto) (50-75) % Lymph % (Auto) (25-40) % Garrard % (Auto) (3-14) % Eos % (Auto) (2-4) % Baso % (Auto) (0-2) % Neut # (Auto) (5341-0117) /uL Lymph # (Auto) (8439-6808) /uL Garrard # (Auto) (0-900) /uL Eos # (Auto) (0-450) /uL Baso # (Auto) (0-100) /uL Sodium (137-145) mmol/L Potassium (3.4-5.1) mmol/L Chloride (98-107) mmol/L Carbon Dioxide (22-32) mmol/L BUN (7-17) mg/dL Creatinine (0.52-1.04) mg/dL Estimated GFR (>60) mL/min BUN/Creatinine Ratio (6-22) Glucose (80-110) mg/dL Lactate (0.7-2.1) mmol/L Calcium (8.4-10.2) mg/dL Total Bilirubin (0.2-1.3) mg/dL AST (14-36) IU/L ALT (<35) IU/L Alkaline Phosphatase (38-126) U/L Total Protein (6.3-8.2) g/dL Albumin (3.5-5.0) g/dL Globulin (1.7-4.1) g/dL Albumin/Globulin Ratio (1.0-2.8) Urine Color Yellow Urine Appearance Slightly cloudy Urine pH 6.0 (4.5-8.0) Ur Specific [place] 1.010 (1.000-1.035) Urine Protein Negative (Negative) Urine Glucose (UA) Negative (Negative) g/dL Urine Ketones Negative (NEGATIVE) Urine Occult Blood Trace-intact (Negative) Urine Nitrate Negative (Negative) Urine Bilirubin Negative (NEGATIVE) Urine Urobilinogen 0.2 (0.2) E.U./dL Ur Leukocyte Esterase 2+ H (NEGATIVE) Urine RBC None seen (0-5/HPF) Urine WBC 5-10/hpf H (0-5/HPF) Ur Squamous Epith Cells 1-5 /hpf (0-5/HPF) Urine Bacteria Occasional (0-1) (None) Ur Culture Indicated? Specimen cultured Imaging Data CT KUB: Radiologist's Impression: [address] [place] [id number] Scan ReportSigned Patient: Hina Scott#: [id number]: 8Acct:[id number]/Sex: 70 / FDate of Service: 08/18/20Loc: EDAccession Number: [id number] Procedure: CT kidney ureter bladder (KUB) Ordering Provider: Candida Cates [facility]- PROCEDURE: CT KIDNEY URETER BLADDER (KUB) INDICATIONS: Bilateral flank pain TECHNIQUE: Noncontrast 5 mm thick sections acquired from the diaphragms to the symphysis. 5 mm thick coronal and sagittal reformats were then performed. For radiation dose reduction, the following was used: automated exposure control, adjustment of mA and/or kV according to patient size. COMPARISON: [facility], US, US ABDOMEN COMPLETE, 06/09/2018, 15:33. FINDINGS: Image quality: Excellent. Lung bases: Right middle lobe, lingula left lower lobe scars and atelectasis. Heart size is normal. Urinary system: Both kidneys are normal in size. No kidney stones. There is a 6 mm indeterminate cortical hyperdense nodule in the inferior pole of the right kidney, probably a hyperdense cyst. No hydronephrosis or perinephric fat stranding. Both ureters appear non-dilated throughout their expected courses. Bladder wall thickness is normal; no calcified bladder stones. Other solid organs: Liver is normal in size. Gallbladder is normal. Pancreas is normal in contours. Spleen is normal in size. No adrenal nodules. Peritoneum and bowel: Unenhanced bowel loops demonstrate normal wall thickness and caliber. No free fluid or air. Nodes and vessels: No retroperitoneal or mesenteric adenopathy by size criteria. Aorta and inferior vena cava are normal in caliber. Abdominal wall: No ventral hernias. Pelvis: Uterus is normal. No adnexal mass. No pathological free-fluid. No free pelvic fluid. No inguinal adenopathy. There is a small left fat containing inguinal hernia. Bones: No suspicious bony lesions. No vertebral body compression fractures. 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 Trace anterolisthesis of L4 on L5. IMPRESSION: 1. No renal stone or hydronephrosis. 2. 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 Dictated by: Noni Correa M.D. on 08/18/2020 at 12:52 Approved by: Noni Correa M.D. on 08/18/2020 at 13:02 [facility] Narrative Medical decision making narrative: The patient is a 70-year-old female who presents with a chief complaint of bilateral flank pain. She has no signs of systemic illness, no elevated white blood cell count, normal lactate. Urine shows signs of infection with leukocyte esterase, blood bacteria. CT KUB taken as patient has history of pyelonephritis, microscopic hematuria, which shows no visual abnormalities. Renal function within normal limits for patient's hist ory. It is possible that her pain has a musculoskeletal component as it is worse when moving, so she feels much improved after the above-stated medications. Will provide Bactrim for increased renal coverage for urinary tract infection. Discussed at length getting culture, following up with primary care provider coming back to the ER for acute concerns such as abdominal pain with fever common Aleve down fluids etcetera. Patient and have no questions or concerns upon discharge states understanding return precautions as well as follow-up care. The patient was noted to be slightly bradycardic during her emergency department stay with heart rates the low 50s to upper 40s however she is without chest pain dizziness lightheadedness and in no acute distress. Blood pressures remained stable. She is ambulatory throughout her stay in the ER. No signs of systemic infection. <Rossana Llanes, DO - Last Filed: 08/19/20 07:18> Lab Data Labs: Lab Results 08/18/20 08/18/20 08/18/20 Range/Units 11:50 11:50 11:50 WBC 6.8 (4.5-11.0) X10^3/uL RBC 4.15 (4.0-5.2) X10^6/uL Hgb 13.2 (12.0-16.0) g/dL Hct 38.9 (36-46) % MCV 93.8 (80-100) fL MCH 31.7 (26-34) PG MCHC 33.8 (30-36) % RDW 12.7 (11.6-14.8) % Plt Count 229 (150-400) X10^3/uL Neut % (Auto) 55.9 (50-75) % Lymph % (Auto) 32.4 (25-40) % Garrard % (Auto) 6.7 (3-14) % Eos % (Auto) 3.7 (2-4) % Baso % (Auto) 1.3 (0-2) % Neut # (Auto) 3800 (2731-5116) /uL Lymph # (Auto) 2200 (3397-3523) /uL Garrard # (Auto) 500 (0-900) /uL Eos # (Auto) 200 (0-450) /uL Baso # (Auto) 100 (0-100) /uL Sodium 139 (137-145) mmol/L Potassium 4.0 (3.4-5.1) mmol/L Chloride 107 (98-107) mmol/L Carbon Dioxide 25 (22-32) mmol/L BUN 21 H (7-17) mg/dL Creatinine 1.40 H (0.52-1.04) mg/dL Estimated GFR 37.0 L (>60) mL/min BUN/Creatinine Ratio 15.0 (6-22) Glucose 115 H (80-110) mg/dL Lactate 1.6 (0.7-2.1) mmol/L Calcium 9.6 (8.4-10.2) mg/dL Total Bilirubin 0.3 (0.2-1.3) mg/dL AST 41 H (14-36) IU/L ALT 27 (<35) IU/L Alkaline Phosphatase 75 (38-126) U/L Total Protein 8.2 (6.3-8.2) g/dL Albumin 4.4 (3.5-5.0) g/dL Globulin 3.8 (1.7-4.1) g/dL Albumin/Globulin Ratio 1.2 (1.0-2.8) Urine Color Urine Appearance Urine pH (4.5-8.0) Ur Specific [place] (1.000-1.035) Urine Protein (Negative) Urine Glucose (UA) (Negative) g/dL Urine Ketones (NEGATIVE) Urine Occult Blood (Negative) Urine Nitrate (Negative) Urine Bilirubin (NEGATIVE) Urine Urobilinogen (0.2) E.U./dL Ur Leukocyte Esterase (NEGATIVE) Urine RBC (0-5/HPF) Urine WBC (0-5/HPF) Ur Squamous Epith Cells (0-5/HPF) Urine Bacteria (None) Ur Culture Indicated? 08/18/20 Range/Units 11:52 WBC (4.5-11.0) X10^3/uL RBC (4.0-5.2) X10^6/uL Hgb (12.0-16.0) g/dL Hct (36-46) % MCV (80-100) fL MCH (26-34) PG MCHC (30-36) % RDW (11.6-14.8) % Plt Count (150-400) X10^3/uL Neut % (Auto) (50-75) % Lymph % (Auto) (25-40) % Garrard % (Auto) (3-14) % Eos % (Auto) (2-4) % Baso % (Auto) (0-2) % Neut # (Auto) (7627-1854) /uL Lymph # (Auto) (6991-3733) /uL Garrard # (Auto) (0-900) /uL Eos # (Auto) (0-450) /uL Baso # (Auto) (0-100) /uL Sodium (137-145) mmol/L Potassium (3.4-5.1) mmol/L Chloride (98-107) mmol/L Carbon Dioxide (22-32) mmol/L BUN (7-17) mg/dL Creatinine (0.52-1.04) mg/dL Estimated GFR (>60) mL/min BUN/Creatinine Ratio (6-22) Glucose (80-110) mg/dL Lactate (0.7-2.1) mmol/L Calcium (8.4-10.2) mg/dL Total Bilirubin (0.2-1.3) mg/dL AST (14-36) IU/L ALT (<35) IU/L Alkaline Phosphatase (38-126) U/L Total Protein (6.3-8.2) g/dL Albumin (3.5-5.0) g/dL Globulin (1.7-4.1) g/dL Albumin/Globulin Ratio (1.0-2.8) Urine Color Yellow Urine Appearance Slightly cloudy Urine pH 6.0 (4.5-8.0) Ur Specific [place] 1.010 (1.000-1.035) Urine Protein Negative (Negative) Urine Glucose (UA) Negative (Negative) g/dL Urine Ketones Negative (NEGATIVE) Urine Occult Blood Trace-intact (Negative) Urine Nitrate Negative (Negative) Urine Bilirubin Negative (NEGATIVE) Urine Urobilinogen 0.2 (0.2) E.U./dL Ur Leukocyte Esterase 2+ H (NEGATIVE) Urine RBC None seen (0-5/HPF) Urine WBC 5-10/hpf H (0-5/HPF) Ur Squamous Epith Cells 1-5 /hpf (0-5/HPF) Urine Bacteria Occasional (0-1) (None) Ur Culture Indicated? Specimen cultured Discharge Plan Departure Patient Disposition: Home Clinical Impression: Urinary tract infection Qualifiers: Urinary tract infection type: site unspecified Hematuria presence: with hematuria Qualified Code(s): N39.0 - Urinary tract infection, site not specified Instructions: DI for Low Back Pain, DI for Urinary Tract Infection (UTI) Activity Restrictions/Additional Instructions: Thank you for trusting us with your care today As discussed, your urine has signs of infections I sent a prescription of an antibiotic to [facility] in [place]. I also sent a prescription of lidocaine patches for your pain. I do believe that your pain has a musculoskeletal component, so I have given you a prescription of a muscle relaxer as well. Please do not take this and drive or combine with anything sedating. Your kidney function has been stable and there are no visible abnormalities on your CT scan Please follow-up with primary care provider in the next few days. Please come back to the emergency department for any acute concerns such as inability keep down fluids, abdominal pain with fever etcetera Please rest and push fluids. We will call you if we need to change your antibiotics when we get the urine culture results in a few days. Prescriptions: New sulfamethoxazole-trimethoprim [Bactrim DS] 800-160 mg tablet 1 tab PO BID Qty: 14 RF: 0 cyclobenzaprine 10 mg tablet 10 mg PO TID PRN (Reason: muscle spasm) Qty: 14 RF: 0 lidocaine 5 % adhesive patch,medicated 1 patch topical DAILY PRN (Reason: pain) Qty: 15 RF: 0 No Action amlodipine 2.5 mg tablet 2.5 mg PO DAILY RF: 0 sulfamethoxazole-trimethoprim [Bactrim DS] 800-160 mg tablet 1 tab PO BID Qty: 14 RF: 0 cetirizine [Zyrtec] 10 mg Tablet 10 mg PO DAILY RF: 0 tizanidine 4 mg tablet 4 mg PO BEDTIME PRN (Reason: Spasms) RF: 0 pantoprazole 40 mg tablet,delayed release (DR/EC) 40 mg PO DAILY RF: 0 simvastatin 20 mg tablet 20 mg PO BEDTIME RF: 0 ibuprofen 200 mg Tablet 200 mg PO PRN PRN (Reason: pain) RF: 0 magnesium oxide 500 mg Tablet 500 mg PO DAILY RF: 0 gabapentin 300 mg capsule 300 mg PO BID RF: 0 fluoxetine 20 mg capsule 20 mg PO DAILY RF: 0 kdyqgzrn-pts-VF-lycopen-lutein [Centrum Silver] 0.4-300-250 mg-mcg-mcg Tablet 1 tab PO DAILY RF: 0 hydrochlorothiazide 12.5 mg tablet 12.5 mg PO DAILY RF: 0 Calcium/D3/Zing 1 tab PO DAILY RF: 0 biotin 1 tab PO DAILY RF: 0 Referrals: Rahul De Jesus MD [Non-Staff] - <Rossana Llanes DO - Last Filed: 08/19/20 07:18> Cosign ED Attending Cosignature Attestation: I was immediately available in the department for consultation. Documentation has been reviewed. I agree with assessment and plan.
[2020-08-18] MEDS: CYCLOBENZAPRINE 10 MG TABLET PO (13:36)
[2020-08-18] MEDS: TRIMETH/SULFA 160/800 (DS) TABLET 1 TAB PO (13:36)
[2020-08-18] MEDS: LIDOCAINE PATCH 1 EACH ADH..PATCH TOP (13:36)
== END 2020-08-18 14:45 | disposition home or self-care (01) ==
PROVIDERS: Emergency Provider Nurse Practitioner Family
DX: N39.0 Urinary tract infection, site not specified (principal); I10 Essential (primary) hypertension
CPT/HCPCS: 36415; 74176; 80053; 81001; 83605; 85025; 87086; 99281; 99284

== ENCOUNTER → 2024-12-03 12:53 | Outpatient (CLI) | payer OTHER, SELFPAY ==
--- NOTE | 2024-12-03 12:57 | DI.CT.S_ITS ---
PROCEDURE: CT SINUS W CON INDICATIONS: Chronic pansinusitis TECHNIQUE: After the administration of intravenous contrast, 3.0 mm axial images acquired from the frontal sinuses to the mid-sella, with coronal and sagittal reformats. For radiation dose reduction, the following was used: automated exposure control, adjustment of mA and/or kV according to patient size. COMPARISON: None. FINDINGS: Image quality: Excellent. Maxillary Sinuses: No bony remodeling or destruction. Sinuses are clear. Ethmoid Air Cells: No bony remodeling or destruction. Mild left posterior opacifications, otherwise clear. Sphenoid Sinuses: No bony remodeling or destruction. Sinuses are clear. Frontal Sinuses: No bony remodeling or destruction. Sinuses are clear. Ostiomeatal Complexes: Ostiomeatal complexes are patent. No Teresa cells. Miscellaneous: Partial opacification of the left nasal cavity posteriorly partially extending into the inferior left ethmoid air cells (/, 25). Visualized intra- orbital contents are normal. No bari bullosa. Minimal rightward nasal septal deviation. IMPRESSION: Partial opacification of the left posterior nasal cavity with some extension into the left posterior ethmoid air cells. Polyp or mass is not excluded, consider direct visualization. Dictated by: Zane Stafford M.D. on 12/03/2024 at 15:31 Approved by: Zane Stafford M.D. on 12/03/2024 at 15:36
== END ==
PROVIDERS: PCP Family Medicine; Referring Provider Otolaryngology; Visit Provider Otolaryngology
DX: J32.4 Chronic pansinusitis (principal); J34.89 Other specified disorders of nose and nasal sinuses; R51.9 Headache, unspecified
CPT/HCPCS: 70486